=== PATIENT | female | born 1950 | race Caucasian/White ===

== ENCOUNTER → 2017-04-23 | Outpatient (CLI) | payer BC ==
[~2017-04-23] MED LIST: CALC600T37 PO; CYAN500T13 PO; LPT20 PO; MULT-506 PO; RALO60TA31 PO; RSTOPS OP; SERT-234 PO; SYN137 PO; vitamin d 3 PO
--- NOTE | 2017-04-23 09:54 | DIAGNOSTIC IMAGING REPORT ---
(CHEST) THORAX WITHOUT CT DOSE: 268.84 mGy.cm HISTORY: Follow-up pulmonary nodule. TECHNIQUE: Multiaxial CT images of the chest were performed without contrast. A dose lowering technique was utilized adhering to the principles of ALARA. COMPARISON: Chest CT 05/02/2015. Chest CT 01/30/2014. FINDINGS: The central airways are patent. No pleural effusions. No pneumothorax. Mild emphysema. There again noted a few tiny scattered subcentimeter nodules which measure between 2 and 3 mm in size. These remain unchanged. There is a single new 2 mm nodule within the periphery of the left upper lobe in image 71. Linear densities at the lingula favor subsegmental atelectasis or scarring. This remains unchanged. Mild elevation the left hemidiaphragm, unchanged. Small fat-containing right-sided Bochdalek hernia, unchanged. Punctate calcified granuloma seen within the liver. The spleen and adrenal glands are unremarkable. No mediastinal or hilar lymphadenopathy. The heart is normal in size. No suspicious lytic or blastic osseous lesions. IMPRESSION: 1. The majority of the scattered subcentimeter nodules are stable in size and are considered to be benign. There is a single new 2 mm nodule within the left upper lobe. Recommend one year chest CT follow-up to ensure stability. 2. Emphysema. Electronically signed by: Shaun Epperson M.D. 04/23/2017 9:53 AM Dictated Date/Time: 04/23/2017 9:41 AM
== END | disposition home or self-care (01) ==
LOC: C.CTS 09:30
PROVIDERS: ATTEND Physician Assistant
DX: R91.1 Solitary pulmonary nodule (principal); J43.9 Emphysema, unspecified

== ENCOUNTER 2019-09-14 14:09 | Inpatient (IN) ==
[2019-09-14] MEDS ORDERED: SODIUM CHLORIDE 0.9% 1000ML 1,000 ML IV ONE ×2 (14:30→16:22)
[2019-09-14] MEDS ORDERED: ONDANSETRON INJ 2 MG/ML 2 ML VIAL IV STA (14:30)
--- NOTE | 2019-09-14 14:41 | Emergency Department Note ---
Impression & Plan Pyelonephritis, Abdominal pain, Nausea & vomiting, Acute dehydration ED Provider Note NAME: ALEX URRUTIA AGE: 69 SEX: F : 1950 ARRIVES VIA: Walk-In INFORMANT: Patient, ED PROVIDER(S): Yann Wolfe DO CHIEF COMPLAINT: Abdominal pain HPI: The patient is a 69-year-old female who presented to the emergency department for an evaluation of abdominal pain. The patient states on Thursday she started having periumbilical abdominal pain. She states the pain is mostly in her lower quadrants. She does complain of nausea and vomiting which is severe at times. The nausea and vomiting began after the pain and is been w orsening over the last 24 hours. She notices no diarrhea. She does have a slight frontal headache. She does complain of some dizziness upon standing but also states that some of it is vertiginous in nature. She denies having any chest pain or shortness of breath. She denies having any lower extremity edema. She does complain of generalized weakness and states she has dizziness upon going from a seated to standing position. The patient states the pain has slowly been worsening and is worsened with any food as well as movement. She denies having any recent traveling. She has no exposures to COVID-19 that she knows of. She states that she did go with her on a picnic to a local park and states that when she ate the coleslaw that was delivered it did taste funny but no other sick contacts are noted and she states she did not eat very much of the coleslaw. The patient called her primary care physician and was advised to go for a COVID-19 test although she is unsure about this diagnosis. The patient states she has been taking Tylenol for fever. Her last dose was early this morning. She thinks approximately 3 AM. ROS: See above HPI for pertinent positives & negatives. A total of 10 systems reviewed and were otherwise negative. PAST MEDICAL HISTORY: See Below PAST SURGICAL HISTORY: See Below FAMILY HISTORY: See Below SOCIAL HISTORY: See Below HOME MEDICATIONS: See Below ALLERGIES: See Below VITALS: See Below PHYSICAL EXAMINATION: GENERAL: The patient is awake and alert. She is anxious appearing. EYES: The conjunctivae are clear. The pupils are round and reactive. EARS, NOSE, MOUTH AND THROAT: The nose is without any evidence of any deformity. Mucous membranes are dry. NECK: The neck is nontender and supple. RESPIRATORY: Normal respiratory effort is noted there is no evidence of wheezing rhonchi or rales CARDIOVASCULAR: Tachycardic rate with regular rhythm was noted. There is no definite murmur. GASTROINTESTINAL: The abdomen is mildly distended and soft. There is left lower quadrant tenderness with guarding. There is no right lower quadrant tenderness at this time. MUSCULOSKELETAL/EXTREMITIES: There is no evidence of gross deformity full range of motion is noted in the hips and shoulders. SKIN: There is no obvious evidence of any rash. Trace pedal edema was noted. NEUROLOGIC: Patient is awake alert and oriented x3 strength is symmetric patellar reflexes are 2+ bilaterally MEDICAL DECISION MAKING: The patient is a 69-year-old female who presented to the emergency department for an evaluation of nausea and vomiting. The patient has been experiencing u rinary symptoms as well as fever over the last few days. Her symptoms have been worsening. She is now experiencing worsening vomiting. She has been experiencing fever but took Tylenol early this morning. She did not have a fever on presentation in the emergency department. She was found to have an elevated white blood cell count as well as elevated inflammatory markers. Her urine appears to be consistent with infection. CT the abdomen and pelvis was also obtained and appear to be consistent with pyelonephritis. The patient was treated with IV fluids and IV antiemetics. The patient was also treated with IV antibiotics in the emergency department. She was reevaluated multiple times. Her blood pressure continued to be elevated. I am unsure if this is secondary to the involvement of the kidney with her infection. She was treated with 1 dose of Lopressor with improvement of her vital signs. I discussed the patient's laboratory and radiographic studies with her. I also discussed her case with the on-call [facility] hospitalist group. They have agreed to evaluate the patient in the emergency department for further management and disposition. Triage Nursing notes reviewed. Prior medical records reviewed Vital Signs: reviewed and remarkable for tachycardia and hypertension. Differential diagnosis: Etiologies such as appendicitis, diverticulitis, obstruction, inflammatory bowel disease, renal colic, PUD, biliary pathology, pancreatitis, mesenteric ischemia, aortic pathology, infections, genitourinary, UTI, perforated viscus, as well as others were entertained. ER treatment provided: See below Diagnostics interpreted by me: ECG: EKG was obtained in the emergency department. My interpretation is normal sinus rhythm at 92 bpm. There is no ectopy. There is no acute ST segment abnormalities noted. This was compared to a tracing from January 06, 2014. No significant changes were noted. Cardiac Monitoring: An order was placed for continuous cardiac monitoring. The monitor shows a rate of 98 with sinus rhythm. Laboratory studies: As stated above and show below. Imaging studies: See below Consultation(s): [id number]: Discussed this case with Olive with the [facility] hospitalist group. They have agreed to evaluate the patient in the emergency department for further management disposition. ED COURSE: Procedures: none Critical Care: None Past Med/Surg History Medical History (Updated 09/14/19 @ 18:20 by Anya Hung PA-C) Abnormal finding on lung imaging Alcoholism in remission Anxiety Chronic bronchitis CKD (chronic kidney disease), stage III Cough Dry eye syndrome Hepatitis C Treated and cured Hypothyroidism Lesion of vocal cord Medical marijuana use Osteopenia Pulmonary emphysema Solitary pulmonary nodule Wheezing Surgical History (Updated 09/14/19 @ 18:30 by Anya Hung PA-C) H/O colonoscopy H/O dilation and curettage Hx of tubal ligation S/P bronchoscopy Family History Family/Other Osteoporosis Hypertension Myocardial infarction Social History Preferred Language: Taiwanese Communication Ability: Effective Beliefs That Will Affect Care: None Current Living Situation: Spouse current occupational status: retired Other Information That Helps Us Care for You: No Feels Safe at Home: Yes Safety Concerns: Feels Safe At This Time Smoking Status: Former smoker Cigarettes Per Day: 40 ; Hx Alcohol Use: No (Recovering Alcoholic ) Seatbelt Use: always Allergies Allergies Allergy/AdvReac Type Severity Reaction Status Date / Time formoterol [From Dulera] Allergy Severe Unknown Unverified 09/14/19 16:04 mometasone furoate Allergy Severe Unknown Unverified 09/14/19 16:04 [From Dulera] Home Meds Home Medications Medication Instructions Recorded Confirmed atorvastatin 10 mg tablet 5 mg PO DAILY tab 11/02/18 09/14/19 acetaminophen [Tylenol Extra 500 mg PO Q6H PRN 09/14/19 09/14/19 Strength] hydrocortisone 1 applic TOPICAL TID PRN 09/14/19 09/14/19 levothyroxine 88 mcg PO DAILY 09/14/19 09/14/19 nystatin 1 applic TOPICAL BID 09/14/19 09/14/19 nystatin [Nystop] 1 applic TOPICAL TID 09/14/19 09/14/19 omeprazole 20 mg PO DAILY 09/14/19 09/14/19 raloxifene [Evista] 60 mg PO DAILY 09/14/19 09/14/19 venlafaxine [Effexor XR] 150 mg PO DAILY 09/14/19 09/14/19 Previous Rx's Medication Instructions Recorded albuterol sulfate 2.5 mg INH Q4H PRN #360 ml 06/14/19 albuterol sulfate 90 mcg/actuation 2 puffs INHALATION Q4H PRN #18 gm 06/14/19 aerosol inhaler Results & Data (ED) Vital Signs Vital Signs - 24 hr 09/14/19 14:18 09/14/19 15:30 09/14/19 15:33 Temperature 36.7 C Temperature Source Oral Pulse Rate 126 H 97 H Pulse Rate from SpO2 Sensor Respiratory Rate 16 14 Blood Pressure 166/91 H 191/101 H Blood Pressure Mean 116 120 Pulse Oximetry 96 96 96 Oxygen Delivery Method Room Air Room Air Sepsis Recent Fever Within 48 Hours No Sepsis New/Unexplained Change in Mental Status No Sepsis Action Taken by Nursing No Action Required 09/14/19 15:53 09/14/19 15:58 09/14/19 16:00 Temperature Temperature Source Pulse Rate 100 H 96 H 100 H Pulse Rate from SpO2 Sensor 100 H Respiratory Rate 20 24 19 Blood Pressure 202/110 H 200/106 H 181/97 H Blood Pressure Mean 151 126 127 Pulse Oximetry 95 97 97 Oxygen Delivery Method Sepsis Recent Fever Within 48 Hours Sepsis New/Unexplained Change in Mental Status Sepsis Action Taken by Nursing 09/14/19 16:04 09/14/19 16:30 09/14/19 18:22 Temperature Temperature Source Pulse Rate 112 H 93 H 88 Pulse Rate from SpO2 Sensor 94 H Respiratory Rate 22 18 Blood Pressure 181/97 H 164/91 H 180/92 H Blood Pressure Mean 120 Pulse Oximetry 94 100 Oxygen Delivery Method Room Air Sepsis Recent Fever Within 48 Hours Sepsis New/Unexplained Change in Mental Status Sepsis Action Taken by Half-Way Medications Current Medication List: was personally reviewed by me Laboratory Data Attestation: I reviewed the patient's lab results. Result diagrams: 09/14/19 14:50 09/14/19 14:50 Lab Results 09/14/19 09/14/19 09/14/19 Range/Units 14:50 14:50 14:50 WBC 13.14 H (4.8-10.8) K/uL RBC 4.84 (4.2-5.4) M/uL Hgb 13.8 (12.0-16.0) g/dL POC Hgb (12.0-16.0) g/dl Hct 41.0 (37-47) % POC Hct (37-47) % MCV 84.7 (80-100) fL MCH 28.5 (25-34) pg MCHC 33.7 (32-36) g/dL RDW Std Deviation 43.0 (36.4-46.3) fL RDW Coeff of Andreina 13.8 (11.5-14.5) % Plt Count 192 (130-400) K/uL MPV 11.1 H (7.4-10.4) fL Immature Gran % (Auto) 0.3 % Neut % (Auto) 84.8 % Lymph % (Auto) 4.9 % [place] % (Auto) 9.9 % Eos % (Auto) 0.0 % Baso % (Auto) 0.1 % Immature Gran # (Auto) 0.04 H (0.00-0.02) K/uL Neut # (Auto) 11.15 H (1.4-6.5) K/uL Lymph # (Auto) 0.64 L (1.2-3.4) K/uL [place] # (Auto) 1.30 H (0.11-0.59) K/uL Eos # (Auto) 0.00 (0-0.5) K/uL Baso # (Auto) 0.01 (0-0.2) K/uL ESR (0-21) mm/hr POC Sodium (135-144) mmol/L Sodium 136 (136-145) mmol/L POC Potassium (3.3-5.0) mmol/L Potassium 3.2 L (3.5-5.1) mmol/L POC Chloride (101-112) mmol/L Chloride 103 (98-107) mmol/L Carbon Dioxide 20 L (21-32) mmol/L POC Total CO2 (24-31) mmol/L Anion Gap 13.0 H (3-11) POC Anion Gap (16-25) mmol/L POC BUN (7-18) mg/dl BUN 11 (7-18) mg/dl Creatinine 1.12 (0.6-1.2) mg/dl POC Creatinine (0.6-1.3) mg/dl Est Cr Clr Drug Dosing 50.0 ml/min Est GFR ( Amer) 57.6 Est GFR (Non-Af Amer) 49.7 BUN/Creatinine Ratio 9.8 L (10-20) Glucose 96 (70-99) mg/dl POC Glucose (other) (70-99) mg/dl Lactate 1.5 (0.4-2.0) mmol/L Calcium 8.5 (8.5-10.1) mg/dl POC Ioniz Calcium Sidney (1.12-1.32) mmol/l Total Bilirubin 0.7 (0.2-1) mg/dl AST 14 L (15-37) U/L ALT 14 (12-78) U/L Alkaline Phosphatase 73 (45-117) U/L Troponin I < 0.015 (0-0.045) ng/ml C-Reactive Protein 8.87 H (0-0.29) mg/dl Total Protein 7.2 (6.4-8.2) gm/dl Albumin 3.2 L (3.4-5.0) gm/dl Globulin 4.0 (2.5-4.0) gm/dl Albumin/Globulin Ratio 0.8 L (0.9-2) Lipase 92 (73-393) U/L Urine Color Urine Appearance (Clear) Urine pH (4.5-7.5) Ur Specific [place] (1.000-1.030) Urine Protein (Negative) Urine Glucose (UA) (Negative) Urine Ketones (Negative) Urine Blood (Negative) Urine Nitrite (Negative) Urine Bilirubin (Negative) Urine Urobilinogen (Negative) Ur Leukocyte Esterase (Negative) Urine WBC (Auto) (0-5) /hpf Urine RBC (Auto) (0-4) /hpf U Hyaline Cast (Auto) (0-5) /lpf U Epithel Cells (Auto) (0-5) /lpf Urine Bacteria (Auto) (Negative) 09/14/19 09/14/19 09/14/19 Range/Units 14:50 14:58 15:48 WBC (4.8-10.8) K/uL RBC (4.2-5.4) M/uL Hgb (12.0-16.0) g/dL POC Hgb 14.6 (12.0-16.0) g/dl Hct (37-47) % POC Hct 43 (37-47) % MCV (80-100) fL MCH (25-34) pg MCHC (32-36) g/dL RDW Std Deviation (36.4-46.3) fL RDW Coeff of Andreina (11.5-14.5) % Plt Count (130-400) K/uL MPV (7.4-10.4) fL Immature Gran % (Auto) % Neut % (Auto) % Lymph % (Auto) % [place] % (Auto) % Eos % (Auto) % Baso % (Auto) % Immature Gran # (Auto) (0.00-0.02) K/uL Neut # (Auto) (1.4-6.5) K/uL Lymph # (Auto) (1.2-3.4) K/uL [place] # (Auto) (0.11-0.59) K/uL Eos # (Auto) (0-0.5) K/uL Baso # (Auto) (0-0.2) K/uL ESR 42 H (0-21) mm/hr POC Sodium 134 L (135-144) mmol/L Sodium (136-145) mmol/L POC Potassium 3.2 L (3.3-5.0) mmol/L Potassium (3.5-5.1) mmol/L POC Chloride 100 L (101-112) mmol/L Chloride (98-107) mmol/L Carbon Dioxide (21-32) mmol/L POC Total CO2 19 L (24-31) mmol/L Anion Gap (3-11) POC Anion Gap 19.0 (16-25) mmol/L POC BUN 12 (7-18) mg/dl BUN (7-18) mg/dl Creatinine (0.6-1.2) mg/dl POC Creatinine 1.0 (0.6-1.3) mg/dl Est Cr Clr Drug Dosing ml/min Est GFR ( Amer) Est GFR (Non-Af Amer) BUN/Creatinine Ratio (10-20) Glucose (70-99) mg/dl POC Glucose (other) 104 H (70-99) mg/dl Lactate (0.4-2.0) mmol/L Calcium (8.5-10.1) mg/dl POC Ioniz Calcium Sidney 1.09 L (1.12-1.32) mmol/l Total Bilirubin (0.2-1) mg/dl AST (15-37) U/L ALT (12-78) U/L Alkaline Phosphatase (45-117) U/L Troponin I (0-0.045) ng/ml C-Reactive Protein (0-0.29) mg/dl Total Protein (6.4-8.2) gm/dl Albumin (3.4-5.0) gm/dl Globulin (2.5-4.0) gm/dl Albumin/Globulin Ratio (0.9-2) Lipase (73-393) U/L Urine Color Yellow Urine Appearance Clear (Clear) Urine pH 5.0 (4.5-7.5) Ur Specific [place] 1.027 (1.000-1.030) Urine Protein Negative (Negative) Urine Glucose (UA) Negative (Negative) Urine Ketones 3+ H (Negative) Urine Blood Trace H (Negative) Urine Nitrite Negative (Negative) Urine Bilirubin Negative (Negative) Urine Urobilinogen Negative (Negative) Ur Leukocyte Esterase 1+ H (Negative) Urine WBC (Auto) 10-30 H (0-5) /hpf Urine RBC (Auto) 0-4 (0-4) /hpf U Hyaline Cast (Auto) 1-5 (0-5) /lpf U Epithel Cells (Auto) 5-10 H (0-5) /lpf Urine Bacteria (Auto) Negative (Negative) Administered Medications Ioversol (Optiray 320 100ml) 94 ml IV ONCE PRN PRN Reason: Interaction Checking Stop: 09/18/19 15:20 Last Admin: 09/14/19 15:21 Dose: 94 ml Documented by: [id number] Miscellaneous Information (Consult) 1 ea N/A UD PRN PRN Reason: Consult Stop: 10/14/19 15:57 Last Admin: 09/14/19 16:10 Dose: 1 ea Documented by: [id number] Discontinued Medications Sodium Chloride (Nss 1000ml) 1,000 mls @ 999 mls/hr IV .Q1H1M ONE Stop: 09/14/19 15:30 Last Infusion: 09/14/19 16:01 Dose: 0 mls/hr Documented by: [id number] Admin: 09/14/19 15:00 Dose: 999 mls/hr Documented by: [id number] Piperacillin Sod/Tazobactam Sod (Zosyn) 4.5 gm in 120 mls @ 240 mls/hr IV NOW ONE Stop: 09/14/19 16:27 Last Infusion: 09/14/19 16:38 Dose: 0 mls/hr Documented by: [id number] Admin: 09/14/19 16:04 Dose: 240 mls/hr Documented by: [id number] Sodium Chloride (Nss 1000ml) 1,000 mls @ 999 mls/hr IV .Q1H1M ONE Stop: 09/14/19 17:22 Last Admin: 09/14/19 16:36 Dose: 999 mls/hr Documented by: [id number] Metoprolol Tartrate (Lopressor) 5 mg IV NOW STA Stop: 09/14/19 16:00 Last Admin: 09/14/19 16:04 Dose: 5 mg Documented by: [id number] Ondansetron HCl (Zofran) 4 mg IV NOW STA Stop: 09/14/19 14:31 Last Admin: 09/14/19 15:16 Dose: 4 mg Documented by: [id number] Imaging Data Radiologist's Impression: SINGLE VIEW CHEST CLINICAL HISTORY: Fever. FINDINGS: An AP, portable, upright chest radiograph is correlated with chest CT dated 06/10/2019. The examination is degraded by portable technique and patient rotation. The cardiomediastinal silhouette is unremarkable noting atherosclerotic calcification of the thoracic aorta. Emphysema and chronic interstitial thickening are similar to previous. No airspace consolidation or large pleural effusion is identified. There is minimal bibasilar atelectasis. No pneumothorax is seen. The skeletal structures are osteopenic. There are healed left-sided rib fractures. IMPRESSION: Emphysematous change with no acute cardiopulmonary abnormality. ACT 112: Negative or not required by law. Electronically signed by: Robert Dodd M.D. 09/14/2019 2:59 PM Dictated: 09/14/19 1457 Transcribed: 09/14/[address] OF THE ABDOMEN AND PELVIS WITH CONTRAST CLINICAL HISTORY: Fever. Abdominal pain. COMPARISON STUDY: None. TECHNIQUE: Following IV administration of 94 mL of Optiray-320, axial images of the abdomen and pelvis were obtained from the lung bases to the proximal femurs. Images were reviewed in the axial, sagittal, and coronal planes. IV contrast was administered without complication. Automated exposure control was utilized for the study. A dose lowering technique was utilized adhering to the principles of ALARA. CT DOSE: 578.75 mGy.cm FINDINGS: Lung bases are unremarkable. No pneumatosis, free air or portal venous gas is present. The liver, spleen, adrenal glands, right kidney and pancreas are unremarkable. A subcentimeter hypodense lesion within the lower pole the right kidney likely contains fat. 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 There are multiple hypoenhancing foci within the left kidney with perinephric infiltration. There is asymmetric enhancement of the left ureteral wall. Mild bladder wall thickening with adjacent infiltration is noted. There are no urinary calculi. There is no renal abscess. No hydronephrosis is present. Colonic diverticulosis is noted without evidence for acute diverticulitis. No lymphadenopathy is present. There is no evidence for a bowel obstruction. The appendix is normal. No suspicious osseous lesions are present. IMPRESSION: Findings consistent with left sided pyelonephritis and pyelitis. Probable cystitis. No renal abscess. No hydronephrosis. ACT 112: Negative or not required by law. Electronically signed by: Thor Sandhu M.D. 09/14/2019 3:54 PM Dictated: 09/14/19 1528 Transcribed: 09/14/19 1528 Blood Pressure Blood Pressure Findings: Elevated blood pressure Blood Pressure Disposition: further management by hospitalist Discharge Plan Visit Data Chief Complaint: Fever Stated Complaint: STOMACH PAIN,FEVER ED Provider: Yann Wolfe Discharge Problem: Pyelonephritis, Abdominal pain, Nausea & vomiting, Acute dehydration Patient Disposition: Being Evaluated by Hospitalist Condition: Good Discharge Instructions Interventions: ED Discharge Assessment Last Done: 09/14/19 18:22 Forms Stand Alone Forms: [facility] [employer] Prescriptions Prescriptions: No Action albuterol sulfate 90 mcg/actuation HFA aerosol inhaler 2 puffs inhalation Q4H PRN (Reason: shortness of breath or wheezing) Qty: 18 RF: 5 albuterol sulfate 2.5 mg /3 mL (0.083 %) solution for nebulization 2.5 mg INH Q4H PRN (Reason: shortness of breath or wheezing) Qty: 360 RF: 5 atorvastatin 10 mg tablet 5 mg PO DAILY RF: 0 Trelegy Ellipta 100-62.5-25 mcg blister with device 1 inh inhalation DAILY RF: 0 venlafaxine [Effexor XR] 150 mg capsule,extended release 24hr 150 mg PO DAILY RF: 0 levothyroxine 88 mcg tablet 88 mcg PO DAILY RF: 0 nystatin 100,000 unit/gram cream 1 applic TOPICAL BID RF: 0 omeprazole 20 mg capsule,delayed release(DR/EC) 20 mg PO DAILY RF: 0 raloxifene [Evista] 60 mg tablet 60 mg PO DAILY RF: 0 hydrocortisone 2.5 % Cream 1 applic TOPICAL TID PRN (Reason: AFFECTED AREA) RF: 0 nystatin [Nystop] 100,000 unit/gram powder 1 applic TOPICAL TID RF: 0 acetaminophen [Tylenol Extra Strength] 500 mg Tablet 500 mg PO Q6H PRN (Reason: Pain) RF: 0 Referrals Referrals: Mallika Jauregui DO [Primary Care Provider] - Discharge Problem: Abdominal pain Qualifiers: Abdominal location: left upper quadrant Qualified Code(s): R10.12 - Left upper quadrant pain Nausea & vomiting Qualifiers: Vomiting type: unspecified Vomiting Intractability: non-intractable Qualified Code(s): R11.2 - Nausea with vomiting, unspecified
--- NOTE | 2019-09-14 15:00 | XRay Report ---
SINGLE VIEW CHEST CLINICAL HISTORY: Fever. FINDINGS: An AP, portable, upright chest radiograph is correlated with chest CT dated 06/10/2019. The examination is degraded by portable technique and patient rotation. The cardiomediastinal silhouette is unremarkable noting atherosclerotic calcification of the thoracic aorta. Emphysema and chronic int erstitial thickening are similar to previous. No airspace consolidation or large pleural effusion is identified. There is minimal bibasilar atelectasis. No pneumothorax is seen. The skeletal structures are osteopenic. There are healed left-sided rib fractures. IMPRESSION: Emphysematous change with no acute cardiopulmonary abnormality. ACT 112: Negative or not required by law. Electronically signed by: Robert Dodd M.D. 09/14/2019 2:59 PM
[2019-09-14 15:03] LABS: Basophils # (auto) 0.01 K/uL (0-0.2); Basophils % (auto) 0.1 %; Hemoglobin 13.8 g/dL (12.0-16.0); Immature Granulocytes # (auto) 0.04 K/uL (0.00-0.02); Immature Granulocytes % (auto) 0.3 %; Lymphocytes # (auto) 0.64 K/uL (1.2-3.4); Lymphocytes % (auto) 4.9 %; Mean Corpuscular Hemoglobin 28.5 pg (25-34); Mean Corpuscular Hgb Conc 33.7 g/dL (32-36); Mean Corpuscular Volume 84.7 fL (80-100); Mean Platelet Volume 11.1 fL (7.4-10.4); Monocytes % (auto) 9.9 %; Neutrophils # (auto) 11.15 K/uL (1.4-6.5); Neutrophils % (auto) 84.8 %; Platelet Count 192 K/uL (130-400); RDW Coefficient of Variation 13.8 % (11.5-14.5); Red Blood Count 4.84 M/uL (4.2-5.4); White Blood Count 13.14 K/uL (4.8-10.8)
[2019-09-14 15:11] LABS: iSTAT Hemoglobin 14.6 g/dl (12.0-16.0); iSTAT Ionized Calcium 1.09 mmol/l (1.12-1.32); iSTAT Potassium 3.2 mmol/L (3.3-5.0)
[2019-09-14] MEDS ORDERED: IOVERSOL 100ml IV PRN (15:21)
[2019-09-14 15:29] LABS: Alanine Aminotransferase 14 U/L (12-78); Albumin Level 3.2 gm/dl (3.4-5.0); Aspartate Aminotransferase 14 U/L (15-37); BUN Creatinine Ratio 9.8 (10-20); Blood Urea Nitrogen 11 mg/dl (7-18); Calcium 8.5 mg/dl (8.5-10.1); Carbon Dioxide 20 mmol/L (21-32); Chloride 103 mmol/L (98-107); Est GFR (African American) 57.6; Est GFR (Non-African American) 49.7; Glucose 96 mg/dl (70-99); Lipase 92 U/L (73-393); Potassium 3.2 mmol/L (3.5-5.1); Sodium 136 mmol/L (136-145)
[2019-09-14 15:34] LABS: Albumin Globulin Ratio 0.8 (0.9-2); Alkaline Phosphatase 73 U/L (45-117); Bilirubin,Total 0.7 mg/dl (0.2-1); C Reactive Protein 8.87 mg/dl (0-0.29); Total Protein 7.2 gm/dl (6.4-8.2); Troponin I < 0.015 ng/ml (0-0.045)
--- NOTE | 2019-09-14 15:55 | CT Scan Report ---
CT OF THE ABDOMEN AND PELVIS WITH CONTRAST CLINICAL HISTORY: Fever. Abdominal pain. COMPARISON STUDY: None. TECHNIQUE: Following IV administration of 94 mL of Optiray-320, axial images of the abdomen and pelvi s were obtained from the lung bases to the proximal femurs. Images were reviewed in the axial, sagitt al, and coronal planes. IV contrast was administered without complication. Automated exposure contro l was utilized for the study. A dose lowering technique was utilized adhering to the principles of A ROGER. CT DOSE: 578.75 mGy.cm FINDINGS: Lung bases are unremarkable. No pneumatosis, free air or portal venous gas is present. The liver, spleen, adrenal glands, right kidney and pancreas are unremarkable. A subcentimeter hypodense lesion within the lower pole the right kidney likely contains fat. This is likely benign and favors a n angiomyolipoma. There are multiple hypoenhancing foci within the left kidney with perinephric infil tration. There is asymmetric enhancement of the left ureteral wall. Mild bladder wall thickening with adjacent infiltration is noted. There are no urinary calculi. There is no renal abscess. No hydronep hrosis is present. Colonic diverticulosis is noted without evidence for acute diverticulitis. No lymp hadenopathy is present. There is no evidence for a bowel obstruction. The appendix is normal. No susp icious osseous lesions are present. IMPRESSION: Findings consistent with left sided pyelonephritis and pyelitis. Probable cystitis. No r enal abscess. No hydronephrosis. ACT 112: Negative or not required by law. Electronically signed by: Thor Sandhu M.D. 09/14/2019 3:54 PM
[2019-09-14] MEDS ORDERED: PIPERACILL/TAZOBAC CONSULT ACTIVE PRN ×2 (15:58→19:20)
[2019-09-14] MEDS ORDERED: PIPERACILLIN/TAZOBACTAM 4.5 GM/120 ML BAG IV ONE (15:58)
[2019-09-14] MEDS ORDERED: METOPROLOL TARTRATE 1 MG/ML VIAL IV STA (15:59)
[2019-09-14 16:17] LABS: Appearance Urine Clear (Clear); Bacteria Urine Automated Negative (Negative); Bilirubin Urine Negative (Negative); Blood Urine Trace (Negative); Color Urine Yellow; Glucose Urine UA Negative (Negative); Ketones Urine 3+ (Negative); Leukocyte Esterase Urine 1+ (Negative); Nitrite Urine Negative (Negative); Protein Urine Negative (Negative); RBC Urine Automated 0-4 /hpf (0-4); Specific Gravity Urine 1.027 (1.000-1.030); Urobilinogen Urine Negative (Negative)
--- NOTE | 2019-09-14 17:59 | History & Physical Report ---
Date of Service September 14, 2019 Assessment & Plan (1) Sepsis secondary to UTI: (2) Pyelonephritis: (3) Abdominal pain: (4) Nausea & vomiting: Patient with abdominal pain, N/V, fever, and upon presentation, what appears to be acute pyelonephritis. Meets sepsis criteria. Will admit to PCU for close monitoring. Urine culture pending. Blood cultures ordered. Zosyn started in the ED- will continue pending cultures results. Hopefully can deescalate tomorrow. Continue Zofran PRN Nausea. Continue Tylenol PRN pain/fever. Full liquid diet. Advance as tolerated. (5) Acute dehydration: (6) Hypokalemia: (7) CKD (chronic kidney disease), stage III: (8) Elevated BP without diagnosis of hypertension: BP elevated likely secondary to dehydration and infection. Metoprolol given in the ED. BP slightly better now. Patient with no history of HTN. Will give IV Hydralazine 5 mg TID PRN BP >180 systolic or >100 diastolic. Continue to monitor closely. Continue IV hydration. Give K-Jesus x 2. Continue 20 mEq K+ in NSS x 2 bags. Recheck CBC and BMP in AM. (9) Hypothyroidism: Restart Levothyroxine in AM (10) DVT prophylaxis: Lovenox History of Present Illness Chief Complaint: Abdominal pain, fever Primary Care Provider: Mallika Jauregui DO Patient is a 69 yo female with PMHx including CKD III, hypothyroidism, & COPD who presented to the ED with concern of abdominal pain, N/V, and fever at home. She started to have symptoms Thursday evening at which time she ate some potato salad and heather slaw that she thought might be out of date. She felt that it was bad, and soon after she started to feel poorly. By Thursday morning, she noted N/V, increased urination with urgency, fever up to 103 F, frontal headache, and vague generalized abdominal pain. She has continued to have these symptoms worsening over the past few days. She hasn't taken any of her home meds since Thursday night due to N/V. She had a kidney infection when she was young, but otherwise no recent UTIs. No chest pain, dysphagia, or peripheral edema. Upon presentation, patient was noted to have severely elevated BP up to 202/110 without a formal diagnosis of HTN as an outpatient. She had hyponatremia and hypokalemia. Hyponatremia has improved but continued hypokalemia. No further vomiting. She has shaking chills on and off. No fever currently. Last antipyretic taken last night at 3AM. Abdominal/pelvic CT showed left sided pyelonephritis and pyelitis with probable cystitis. CXR showed signs of emphysema but no acute changes. Urine culture pending. Zosyn given in the ED. Lopressor also given. WBC count 13 with bandemia. ESR 42. CRP 8.8. Creatinine 1.12. Allergies Allergy/AdvReac Type Severity Reaction Status Date / Time formoterol [From Dulera] Allergy Severe Unknown Unverified 09/14/19 16:04 mometasone furoate Allergy Severe Unknown Unverified 09/14/19 16:04 [From Dulera] Home Medications Home Medications Medication Instructions Recorded Confirmed Type atorvastatin 10 mg tablet 5 mg PO DAILY tab 11/02/18 09/14/19 History albuterol sulfate 2.5 mg INH Q4H PRN #360 ml 06/14/19 09/14/19 Rx albuterol sulfate 90 mcg/actuation 2 puffs INHALATION Q4H PRN #18 gm 06/14/19 09/14/19 Rx aerosol inhaler acetaminophen [Tylenol Extra 500 mg PO Q6H PRN 09/14/19 09/14/19 History Strength] hydrocortisone 1 applic TOPICAL TID PRN 09/14/19 09/14/19 History levothyroxine 88 mcg PO DAILY 09/14/19 09/14/19 History nystatin 1 applic TOPICAL BID 09/14/19 09/14/19 History nystatin [Nystop] 1 applic TOPICAL TID 09/14/19 09/14/19 History omeprazole 20 mg PO DAILY 09/14/19 09/14/19 History raloxifene [Evista] 60 mg PO DAILY 09/14/19 09/14/19 History venlafaxine [Effexor XR] 150 mg PO DAILY 09/14/19 09/14/19 History Past Med/Surg History Medical History (Updated 09/14/19 @ 18:20 by Anya Hung PA-C) Abnormal finding on lung imaging Alcoholism in remission Anxiety Chronic bronchitis CKD (chronic kidney disease), stage III Cough Dry eye syndrome Hepatitis C Treated and cured Hypothyroidism Lesion of vocal cord Medical marijuana use Osteopenia Pulmonary emphysema Solitary pulmonary nodule Wheezing Surgical History (Updated 09/14/19 @ 18:30 by Anya Hung PA-C) H/O colonoscopy H/O dilation and curettage Hx of tubal ligation S/P bronchoscopy Family History Family/Other Osteoporosis Hypertension Myocardial infarction Social History Preferred Language: Korean Communication Ability: Effective Beliefs That Will Affect Care: None Current Living Situation: Spouse current occupational status: retired Other Information That Helps Us Care for You: No Feels Safe at Home: Yes Safety Concerns: Feels Safe At This Time Smoking Status: Former smoker Cigarettes Per Day: 40 ; Hx Alcohol Use: No (Recovering Alcoholic ) Seatbelt Use: always Review of Systems Review of Systems: All systems reviewed & are unremarkable except as noted in HPI & below Physical Exam Constitutional: WD/WN, vitals as above Eyes: PERRL, conjunctivae normal, anicteric sclerae ENMT: external ear and nose normal, oropharynx normal Neck: trachea midline, no thyromegaly Respiratory: normal respiratory effort; no respiratory distress and no labored breathing Cardiovascular: RRR, no murmur, no edema Gastrointestinal (Abdomen): normal bowel sounds, soft, nontender, no hepatosplenomegaly Musculoskeletal: Head/Neck/Chest: + head abnormal to inspection, normocephalic and head atraumatic Extremities: extremities normal to inspection Skin: no rashes, warm and dry Psychiatric: A+Ox3, euthymic affect Results & Data Results & Data ([facility]) Vital Signs (Past 12 Hours) Vital Signs Temp Pulse Resp BP Pulse Ox 09/14/19 16:30 93 H 22 164/91 H 94 09/14/19 16:04 112 H 181/97 H 09/14/19 16:00 100 H 19 181/97 H 97 09/14/19 15:58 96 H 24 200/106 H 97 09/14/19 15:53 100 H 20 202/110 H 95 09/14/19 15:33 96 09/14/19 15:30 97 H 14 191/101 H 96 09/14/19 14:18 36.7 C 126 H 16 166/91 H 96 Laboratory Results Laboratory Results - last 24 hr 09/14/19 09/14/19 09/14/19 14:50 14:50 14:50 WBC 13.14 H RBC 4.84 Hgb 13.8 POC Hgb Hct 41.0 POC Hct MCV 84.7 MCH 28.5 MCHC 33.7 RDW Std Deviation 43.0 RDW Coeff of Andreina 13.8 Plt Count 192 MPV 11.1 H Immature Gran % (Auto) 0.3 Neut % (Auto) 84.8 Lymph % (Auto) 4.9 [place] % (Auto) 9.9 Eos % (Auto) 0.0 Baso % (Auto) 0.1 Immature Gran # (Auto) 0.04 H Neut # (Auto) 11.15 H Lymph # (Auto) 0.64 L [place] # (Auto) 1.30 H Eos # (Auto) 0.00 Baso # (Auto) 0.01 ESR POC Sodium Sodium 136 POC Potassium Potassium 3.2 L POC Chloride Chloride 103 Carbon Dioxide 20 L POC Total CO2 Anion Gap 13.0 H POC Anion Gap POC BUN BUN 11 Creatinine 1.12 POC Creatinine Est Cr Clr Drug Dosing 50.0 Est GFR ( Amer) 57.6 Est GFR (Non-Af Amer) 49.7 BUN/Creatinine Ratio 9.8 L Glucose 96 POC Glucose (other) Lactate 1.5 Calcium 8.5 POC Ioniz Calcium Sidney Total Bilirubin 0.7 AST 14 L ALT 14 Alkaline Phosphatase 73 Troponin I < 0.015 C-Reactive Protein 8.87 H Total Protein 7.2 Albumin 3.2 L Globulin 4.0 Albumin/Globulin Ratio 0.8 L Lipase 92 Urine Color Urine Appearance Urine pH Ur Specific [place] Urine Protein Urine Glucose (UA) Urine Ketones Urine Blood Urine Nitrite Urine Bilirubin Urine Urobilinogen Ur Leukocyte Esterase Urine WBC (Auto) Urine RBC (Auto) U Hyaline Cast (Auto) U Epithel Cells (Auto) Urine Bacteria (Auto) 09/14/19 09/14/19 09/14/19 14:50 14:58 15:48 WBC RBC Hgb POC Hgb 14.6 Hct POC Hct 43 MCV MCH MCHC RDW Std Deviation RDW Coeff of Andreina Plt Count MPV Immature Gran % (Auto) Neut % (Auto) Lymph % (Auto) [place] % (Auto) Eos % (Auto) Baso % (Auto) Immature Gran # (Auto) Neut # (Auto) Lymph # (Auto) [place] # (Auto) Eos # (Auto) Baso # (Auto) ESR 42 H POC Sodium 134 L Sodium POC Potassium 3.2 L Potassium POC Chloride 100 L Chloride Carbon Dioxide POC Total CO2 19 L Anion Gap POC Anion Gap 19.0 POC BUN 12 BUN Creatinine POC Creatinine 1.0 Est Cr Clr Drug Dosing Est GFR ( Amer) Est GFR (Non-Af Amer) BUN/Creatinine Ratio Glucose POC Glucose (other) 104 H Lactate Calcium POC Ioniz Calcium Sidney 1.09 L Total Bilirubin AST ALT Alkaline Phosphatase Troponin I C-Reactive Protein Total Protein Albumin Globulin Albumin/Globulin Ratio Lipase Urine Color Yellow Urine Appearance Clear Urine pH 5.0 Ur Specific [place] 1.027 Urine Protein Negative Urine Glucose (UA) Negative Urine Ketones 3+ H Urine Blood Trace H Urine Nitrite Negative Urine Bilirubin Negative Urine Urobilinogen Negative Ur Leukocyte Esterase 1+ H Urine WBC (Auto) 10-30 H Urine RBC (Auto) 0-4 U Hyaline Cast (Auto) 1-5 U Epithel Cells (Auto) 5-10 H Urine Bacteria (Auto) Negative Diagnostic Findings CT Abd/Pelvis: IMPRESSION: Findings consistent with left sided pyelonephritis and pyelitis. Probable cystitis. No renal abscess. No hydronephrosis. CXR: IMPRESSION: Emphysematous change with no acute cardiopulmonary abnormality. Code Status & VTE Plan VTE Prophylaxis Plan VTE Prophylaxis will be ordered: Yes Supervising Physician Co-Signing Physician Notes Patient is a 69-year-old female with history of CKD, hypothyroidism, COPD and other medical problems presents with history of nausea, vomiting, abdominal pain associated with fever and increased urinary frequency. Please review HPI for complete details of presentation. CT abdomen suggestive of left-sided pyeloneph ritis and pyelitis, cystitis. No abscess or hydronephrosis noted. Patient meets sirs criteria. On exam patient is moderately built and nourished, normocephalic atraumatic, lungs are clear to auscultation, S1-S2, no murmur, abdomen soft nontender, no CVA tenderness, no pedal edema. Patient is admitted for management of sepsis secondary to acute pyelonephritis. Will start on IV Zosyn, IV fluids. Will obtain cultures. Also noted hypokalemia, mild metabolic acidosis. Normal lactate levels. Hypokalemia likely due to GI losses. Will replete electrolytes as needed. COPD--no signs of exacerbation. On chronic medical marijuana use. Continue levothyroxine for hypothyroidism. Blood pressure is elevated while in ED. Likely situational. Continue home medications. Hydralazine IV PRN. Will start on full liquid diet. Advance diet as tolerated. I personally reviewed the record. Patient is interviewed and examined at bedside. Patient's care is coordinated with Anya Hung PA-C. Please refer to the documentation above for details of patient's presentation and for discussion of other issues. (1) Nausea & vomiting Vomiting Intractability: non-intractable Vomiting type: unspecified Qualified Code(s): R11.2 - Nausea with vomiting, unspecified (2) Abdominal pain Abdominal location: left upper quadrant Qualified Code(s): R10.12 - Left upper quadrant pain
[2019-09-14] MEDS ORDERED: HydrALAZINE HCL 20 MG/ML VIAL IV PRN (18:48)
[2019-09-14] MEDS ORDERED: ONDANSETRON INJ 2 MG/ML 2 ML VIAL ONE (19:13)
[2019-09-14] MEDS: ONDANSETRON INJ 2 MG/ML 2 ML VIAL IV PRN (19:18)
[2019-09-14] MEDS: NSS + 20MEQ KCL 20 MEQ/1,000 ML BAG IV SCH (19:56)
[2019-09-14] MEDS: POTASSIUM CHLORIDE / WTR 10 MEQ/100 ML PLCT IV SCH ×2 (19:56→21:33)
[2019-09-14] MEDS: PIPERACILLIN/TAZOBACTAM 3.375 GM in DEXTROSE 5% 100 ML IV SCH (21:34)
[2019-09-14] MEDS: ENOXAPARIN INJ 40 MG/0.4 ML SYR SQ SCH (21:34)
[2019-09-15] MEDS: ONDANSETRON INJ 2 MG/ML 2 ML VIAL IV PRN ×2 (05:08→12:27)
[2019-09-15] MEDS: PIPERACILLIN/TAZOBACTAM 3.375 GM in DEXTROSE 5% 100 ML IV SCH ×3 (05:08→20:45)
[2019-09-15] MEDS: ACETAMINOPHEN 325 MG TAB PO PRN ×4 (05:09→19:52)
[2019-09-15] MEDS: LEVOTHYROXINE SODIUM 88 MCG TABLET PO SCH (05:09)
[2019-09-15 06:37] LABS: Hematocrit (blood only) 36.9 % (37-47); Hemoglobin 12.2 g/dL (12.0-16.0); Mean Corpuscular Hemoglobin 28.2 pg (25-34); Mean Corpuscular Hgb Conc 33.1 g/dL (32-36); Mean Corpuscular Volume 85.4 fL (80-100); Mean Platelet Volume 11.6 fL (7.4-10.4); Platelet Count 177 K/uL (130-400); RDW Coefficient of Variation 14.1 % (11.5-14.5); RDW Standard Deviation 44.6 fL (36.4-46.3); Red Blood Count 4.32 M/uL (4.2-5.4); White Blood Count 9.78 K/uL (4.8-10.8)
[2019-09-15 07:07] LABS: BUN Creatinine Ratio 9.8 (10-20); Calcium 8.2 mg/dl (8.5-10.1); Creatinine Clr Calc Pharmacy 52.3 ml/min; Est GFR (African American) 60.2; Potassium 3.6 mmol/L (3.5-5.1)
[2019-09-15] MEDS: NSS + 20MEQ KCL 20 MEQ/1,000 ML BAG IV SCH (07:55)
[2019-09-15] MEDS: VENLAFAXINE HCL XR 150 MG CAPXR PO SCH (07:56)
[2019-09-15] MEDS: RALOXIFENE HCL 60 MG TAB PO SCH (07:57)
[2019-09-15] MEDS: ATORVASTATIN 10 MG TAB PO SCH (07:57)
[2019-09-15] MEDS: PANTOprazole 40 MG TAB PO SCH (07:57)
[2019-09-15] MEDS: FLUTICASONE FUROATE 100MCG 14 PUFFS/INHALER INH SCH (07:58)
[2019-09-15] MEDS: UMECLIDINIUM/VILANTEROL 62.5/25MCG 7 PUFFS/INHALER INH SCH (07:58)
[2019-09-15] MEDS ORDERED: NON-FORMULARY MEDICATION (Fluticasone-Umeclidin-Vilanter [Trelegy Ellipta] 1 PUFFS) inhalation SCH (09:00)
--- NOTE | 2019-09-15 12:20 | CT Scan Report ---
CT head/brain wo con CLINICAL HISTORY: 69 years-old Female with headache, r/o bleed. Acute headache. TECHNIQUE: Multiple axial CT images of the head were obtained without contrast. A dose lowering tech nique was utilized adhering to the principles of ALARA. CT DOSE: 614.27 mGy.cm COMPARISON: None. FINDINGS: No acute intracranial hemorrhage, midline shift, intracranial mass, hydrocephalus, territorial ischem ia or abnormal extra-axial collection. Mild age-related involutional changes. Mild patchy white matte r hypodensities suggest chronic microvascular ischemic disease. The calvarium is intact. Trace right mastoid effusion. The left mastoid air cells are clear. The par anasal sinuses are generally clear. Hypoplastic frontal sinuses. Prior bilateral lens replacement. So ft tissues are unremarkable. IMPRESSION: No acute intracranial abnormality. ACT 112: Negative or not required by law. The above report was generated using voice recognition software. It may contain grammatical, syntax o r spelling errors. Electronically signed by: aYng Franklin M.D. 09/15/2019 12:18 PM
--- NOTE | 2019-09-15 16:58 | Electrocardiogram Report ---
Test Reason : Blood Pressure : / mmHG Vent. Rate : 092 BPM Atrial Rate : 092 BPM P-R Int : 154 ms QRS Dur : 078 ms QT Int : 370 ms P-R-T Axes : 030 031 063 degrees QTc Int : 457 ms Poor data quality, interpretation may be adversely affected Normal sinus rhythm Normal ECG When compared with ECG of 06-JAN-2014 15:38, No significant change was found Confirmed by Jesus Arteaga ([id number]) on 09/15/2019 4:58:22 PM Referred By: REFERRED SELF Confirmed By:Olman Arteaga
--- NOTE | 2019-09-15 18:26 | Hospitalist Progress Note ---
Date of Service September 15, 2019 Assessment & Plan (1) Sepsis secondary to UTI: (1) Sepsis secondary to UTI: (2) Pyelonephritis: (3) Abdominal pain: (4) Nausea & vomiting: Afebrile so far Leukocytosis resolved Urine culture positive for E. coli Blood cultures pending Continue Zosyn IV day #2 Monitor closely (5) Acute dehydration: Creatinine at baseline DC IV fluids secondary to hypertension Encourage oral fluid intake (6) Hypokalemia: Resolved (7) CKD (chronic kidney disease), stage III: Creatinine at baseline (8) Elevated BP without diagnosis of hypertension: Blood pressure still elevated, still having headache-improving Likely secondary to underlying illness, stress CT head: No acute process, no bleed Patient's brother has a history of brain aneurysm, patient already received IV contrast with CAT scan yesterday, will need CT angiogram of the head at some point for screening Start amlodipine 5 mg p.o. daily Monitor closely (9) Hypothyroidism: Continue levothyroxine (10) DVT prophylaxis: Hold Lovenox secondary to elevated blood pressure Monitor Disposition Anticipate discharge home medically stable in 1 to 2 days Plan of care discussed with patient in detail at length All questions were answered She is understanding, comfortable, agreeable with the plan of care Admission and Anticipated Discharge Date Admission Date: September 14, 2019 Subjective Follow-up for sepsis secondary to acute pyelonephritis Seen resting in bed, comfortable, not in distress, pleasant, oriented x3 States she feels improved compared to yesterday Denies back pain, flank pain, abdominal pain No dysuria, reports urgency though Tolerating clear liquids well today No chest pain, shortness of breath, palpitations, dizziness Was having 5 out of 10 headache mostly frontal this morning, improved now No focal neurologic deficits No other symptoms Review of Systems Review of Systems: All systems reviewed & are unremarkable except as noted in HPI & below Physical Exam Physical Exam: General- oriented x 3, not in distress, speaks in sentences with no effort or accessory muscle use Head- atraumatic Eyes- PERRL, EOMI, anicteric ENT- oropharynx clear Neck- supple, no JVD, no adenopathy, no thyromegaly; carotids +2/2, no bruits appreciated Lungs- clear to auscultation bilaterally, no rales/wheezes Heart- normal rate, regular rhythm; no murmur, no gallop, no rub appreciated Abdomen- normal bowel sounds, nondistended, soft, nontender, no masses or hepatosplenomegaly, no CVA tenderness Extremities- no pretibial edema, no calf tenderness; peripheral pulses intact Neuro- alert, oriented x 3; CN 2-12 grossly intact; motor 5/5 bilaterally;sensation 100% on all extremities; no other gross focal neurologic deficits Skin- warm & dry Results & Data Results & [facility] ([facility]) Vital Signs (Past 12 Hours) Vital Signs Temp Pulse Pulse Resp BP BP Pulse Ox 09/15/19 16:00 74 09/15/19 15:30 36.4 C L 71 18 165/79 H 95 09/15/19 11:06 36.9 C 91 H 19 163/84 H 94 09/15/19 08:00 79 09/15/19 07:47 37.1 C 95 H 19 165/76 H 93 Laboratory Results Laboratory Results - last 24 hr 09/14/19 09/15/19 09/15/19 14:50 06:11 06:11 WBC 9.78 RBC 4.32 Hgb 12.2 Hct 36.9 L MCV 85.4 MCH 28.2 MCHC 33.1 RDW Std Deviation 44.6 RDW Coeff of Andreina 14.1 Plt Count 177 MPV 11.6 H Sodium 138 Potassium 3.6 Chloride 107 Carbon Dioxide 22 Anion Gap 9.0 BUN 11 Creatinine 1.08 Est Cr Clr Drug Dosing 52.3 Est GFR ( Amer) 60.2 Est GFR (Non-Af Amer) 52.0 BUN/Creatinine Ratio 9.8 L Glucose 91 Calcium 8.2 L Magnesium 2.1
[2019-09-15] MEDS: AMLODIPINE BESYLATE 5 MG TAB PO SCH (19:52)
[2019-09-15] MEDS: ENOXAPARIN INJ 40 MG/0.4 ML SYR SQ SCH (20:45)
[2019-09-16] MEDS: ONDANSETRON INJ 2 MG/ML 2 ML VIAL IV PRN (00:21)
[2019-09-16] MEDS: ACETAMINOPHEN 325 MG TAB PO PRN (03:22)
[2019-09-16] MEDS: PIPERACILLIN/TAZOBACTAM 3.375 GM in DEXTROSE 5% 100 ML IV SCH (05:46)
[2019-09-16] MEDS: LEVOTHYROXINE SODIUM 88 MCG TABLET PO SCH (05:46)
[2019-09-16] MEDS: VENLAFAXINE HCL XR 150 MG CAPXR PO SCH (08:42)
[2019-09-16] MEDS: AMLODIPINE BESYLATE 5 MG TAB PO SCH (08:42)
[2019-09-16] MEDS: PANTOprazole 40 MG TAB PO SCH (08:42)
[2019-09-16] MEDS: ATORVASTATIN 10 MG TAB PO SCH (08:42)
[2019-09-16] MEDS: FLUTICASONE FUROATE 100MCG 14 PUFFS/INHALER INH SCH (08:44)
[2019-09-16] MEDS: UMECLIDINIUM/VILANTEROL 62.5/25MCG 7 PUFFS/INHALER INH SCH (08:44)
[2019-09-16] MEDS: RALOXIFENE HCL 60 MG TAB PO SCH (08:46)
[2019-09-16 08:51] LABS: Basophils # (auto) 0.01 K/uL (0-0.2); Basophils % (auto) 0.2 %; Eosinophils # (auto) 0.01 K/uL (0-0.5); Eosinophils % (auto) 0.2 %; Hematocrit (blood only) 39.1 % (37-47); Hemoglobin 12.8 g/dL (12.0-16.0); Immature Granulocytes # (auto) 0.04 K/uL (0.00-0.02); Immature Granulocytes % (auto) 0.6 %; Lymphocytes # (auto) 0.74 K/uL (1.2-3.4); Lymphocytes % (auto) 11.7 %; Mean Corpuscular Hemoglobin 27.8 pg (25-34); Mean Corpuscular Hgb Conc 32.7 g/dL (32-36); Mean Corpuscular Volume 84.8 fL (80-100); Mean Platelet Volume 10.8 fL (7.4-10.4); Monocytes # (auto) 0.94 K/uL (0.11-0.59); Monocytes % (auto) 14.9 %; Neutrophils # (auto) 4.56 K/uL (1.4-6.5); Neutrophils % (auto) 72.4 %; Platelet Count 178 K/uL (130-400); RDW Coefficient of Variation 13.8 % (11.5-14.5); RDW Standard Deviation 42.9 fL (36.4-46.3); Red Blood Count 4.61 M/uL (4.2-5.4)
[2019-09-16 09:18] LABS: BUN Creatinine Ratio 7.3 (10-20); Calcium 8.4 mg/dl (8.5-10.1); Creatinine Clr Calc Pharmacy 54.8 ml/min; Est GFR (African American) 63.8; Potassium 3.3 mmol/L (3.5-5.1)
[2019-09-16] MEDS: CEFDINIR 300 MG CAP PO SCH ×2 (09:20→20:29)
[2019-09-16] MEDS ORDERED: POTASSIUM CHLORIDE 20 MEQ TABCR PO STA (17:20)
[2019-09-16] MEDS ORDERED: HydrALAZINE HCL 20 MG/ML VIAL IV PRN (19:03)
--- NOTE | 2019-09-16 19:03 | Hospitalist Progress Note ---
Date of Service September 16, 2019 Assessment & Plan (1) Sepsis secondary to UTI: (1) Sepsis secondary to UTI: (2) Pyelonephritis: (3) Abdominal pain: (4) Nausea & vomiting: Remains afebrile Leukocytosis resolved Urine culture positive for E. coli, pansensitive Blood cultures negative so far Received 2 days of IV Zosyn, transition to cefdinir twice a day to complete 14 days Monitor closely (5) Acute dehydration: Creatinine at baseline Encourage oral fluid intake (6) Hypokalemia: Resolved (7) CKD (chronic kidney disease), stage III: Creatinine at baseline (8) Elevated BP without diagnosis of hypertension: Amlodipine started for uncontrolled blood pressure Likely secondary to underlying illness, stress CT head: No acute process, no bleed Patient's brother has a history of brain aneurysm, patient already received IV contrast with CAT scan yesterday, will need CT angiogram of the head at some point for screening--> plan for tomorrow Blood pressure improving Continue amlodipine 5 mg p.o. daily Add hydralazine as needed for systolic BP more than 160 (9) Hypothyroidism: Continue levothyroxine (10) DVT prophylaxis: Hold Lovenox secondary to elevated blood pressure Monitor Disposition Anticipate discharge home medically stable tomorrow Plan of care discussed with patient in detail at length All questions were answered She is understanding, comfortable, agreeable with the plan of care Admission and Anticipated Discharge Date Admission Date: September 14, 2019 Subjective Follow-up for pyelonephritis, E. coli UTI, hypertension Seen resting in bed, comfortable, not in distress States she feels improved today compared to yesterday No problems urination, no flank pain or back pain Headache has resolved, nausea has resolved Tolerating Jell-O well Denies chest pain, shortness of breath, palpitations, dizziness No other symptoms Review of Systems Review of Systems: All systems reviewed & are unremarkable except as noted in HPI & below Physical Exam Physical Exam: General- oriented x 3, not in distress, speaks in sentences with no effort or accessory muscle use Eyes- anicteric Neck- no JVD Lungs- clear breath sounds bilaterally, no rales/wheezes Heart- normal rate, regular rhythm; no murmurs Abdomen- normal bowel sounds, nondistended, soft, nontender No CVA tenderness Extremities- no pretibial edema, no calf tenderness Neuro- alert, oriented x 3; no gross focal neurologic deficits Skin- warm & dry Results & Data Results & Data ([facility]) Vital Signs (Past 12 Hours) Vital Signs Temp Pulse Pulse Resp BP Pulse Ox 09/16/19 15:28 36.9 C 91 H 20 165/82 H 93 09/16/19 14:21 112 H 09/16/19 11:45 36.7 C 92 H 16 161/84 H 95 09/16/19 07:39 36.6 C 85 16 157/82 H 96 09/16/19 07:00 86
[2019-09-17] MEDS: LEVOTHYROXINE SODIUM 88 MCG TABLET PO SCH (05:18)
[2019-09-17 06:52] LABS: BUN Creatinine Ratio 6.2 (10-20); Calcium 9.1 mg/dl (8.5-10.1); Creatinine Clr Calc Pharmacy 60.8 ml/min; Est GFR (African American) 73.1; Est GFR (Non-African American) 63.1; Potassium 3.3 mmol/L (3.5-5.1)
[2019-09-17] MEDS ORDERED: POTASSIUM CHLORIDE 20 MEQ TABCR PO STA (08:24)
[2019-09-17] MEDS ORDERED: SODIUM CHLORIDE 0.9% 1000ML 1,000 ML IV SCH (08:30)
[2019-09-17] MEDS: ATORVASTATIN 10 MG TAB PO SCH (08:52)
[2019-09-17] MEDS: VENLAFAXINE HCL XR 150 MG CAPXR PO SCH (08:52)
[2019-09-17] MEDS: CEFDINIR 300 MG CAP PO SCH (08:52)
[2019-09-17] MEDS: PANTOprazole 40 MG TAB PO SCH (08:52)
[2019-09-17] MEDS: RALOXIFENE HCL 60 MG TAB PO SCH (08:53)
[2019-09-17] MEDS: AMLODIPINE BESYLATE 5 MG TAB PO SCH (08:53)
[2019-09-17] MEDS: FLUTICASONE FUROATE 100MCG 14 PUFFS/INHALER INH SCH (08:53)
[2019-09-17] MEDS: UMECLIDINIUM/VILANTEROL 62.5/25MCG 7 PUFFS/INHALER INH SCH (08:53)
[2019-09-17] MEDS ORDERED: OPTIRAY 320 125ml IV PRN (11:31)
--- NOTE | 2019-09-17 12:13 | CT Scan Report ---
CT angio head w con HISTORY: headache, r/o aneurysm TECHNIQUE: Multiaxial CT angiography of the head was performed IV contrast: 119 cc nonionic Maximu m intensity projection images were also obtained. A dose lowering technique was utilized adhering to the principles of ALARA. COMPARISON: None. FINDINGS: There is no mass, hematoma, midline shift, or acute infarct. Visualized intracranial events intern al carotid arteries, distal vertebral arteries, and basilar artery are widely patent. There is no sig nificant stenosis, occlusion, or aneurysm seen within the bilateral ACAs, MCAs, or fruit grader. IMPRESSION: No significant stenosis, occlusion, or aneurysm within the [place] of [place]. ACT 112: Negative or not required by law. The above report was generated using voice recognition software. It may contain grammatical, syntax or spelling errors. Electronically signed by: Juan A Galvez M.D. 09/17/2019 12:11 PM
--- NOTE | 2019-09-17 15:48 | Hospitalist Progress Note ---
Date of Service delayed entry date of service noted below September 17, 2019 Assessment & Plan (1) Sepsis secondary to UTI: (1) Sepsis secondary to UTI: (2) Pyelonephritis: (3) Abdominal pain: (4) Nausea & vomiting: Remained afebrile Leukocytosis resolved Urine culture positive for E. coli, pansensitive Blood cultures negative Received 2 days of IV Zosyn, transition to cefdinir twice a day to complete 14 days ff up with PCP in 1 week (5) Acute dehydration: given IV fluids Creatinine at baseline Encourage oral fluid intake (6) Hypokalemia: mild, 3.3 prescribed with K supplement repeat K on ff up with PCP (7) CKD (chronic kidney disease), stage III: Creatinine at baseline patient received IV contrast twice during admission please repeat basic metabolic panel upon ff up with PCP this week (8) Hypertension no history of HTN systolic BP in the 160-170s from stress, infection? Amlodipine started for uncontrolled blood pressure Likely secondary to underlying illness, stress CT head: No acute process, no bleed Blood pressure improved to systolic 130s Continue amlodipine 5 mg p.o. daily ff up with PCP (9) Headache likely secondary to underlying infection, stress CT head: no acute process, (+) chronic microvascular ischemic disease. CT head angio: No significant stenosis, occlusion, or aneurysm within the [place] of [place]. resolved upon discharge (9) Hypothyroidism: Continue levothyroxine Disposition discharge to home ff up with PCP in 1 week, scheduling office closed, clinic to call patient on Thursday Plan of care discussed with patient in detail at length All questions were answered She is understanding, comfortable, agreeable with the plan of care Admission and Anticipated Discharge Date Admission Date: September 14, 2019 Subjective ff up for pyelonephritis, etc. seen resting in bed, comfortable, in good spirits states she feels much better overall denies flank, abdominal pain, problems with urination nausea has resolved headache also resolved no other symptoms states she is ready and would like to be discharged Review of Systems Review of Systems: All systems reviewed & are unremarkable except as noted in HPI & below Physical Exam Physical Exam: General- oriented x 3, not in distress, speaks in sentences w ith no effort or accessory muscle use Eyes- anicteric Neck- no JVD Lungs- clear breath sounds , no rales BL Heart- normal rate, regular rhythm; no murmurs Abdomen- normal bowel sounds, nondistended, soft, nontender no CVA tenderness Extremities- no pretibial edema, no calf tenderness Neuro- alert, oriented x 3; no gross focal neurologic deficits Skin- warm & dry Results & Data Results & Data ([facility]) Vital Signs (Past 12 Hours) Vital Signs Temp Pulse Pulse Resp BP BP Pulse Ox 09/17/19 14:41 37.0 C 109 H 20 136/85 164/84 H 96 09/17/19 14:20 99 H 09/17/19 14:09 37.0 C 109 H 20 136/85 164/84 H 96 09/17/19 07:52 37.0 C 109 H 20 136/85 96 09/17/19 07:00 84 09/17/19 04:16 37.1 C 109 H 17 142/81 H 95
--- NOTE | 2019-09-18 19:29 | Discharge Summary ---
Date of Service September 18, 2019 Admission HPI Per Admitting Provider Patient is a 69 yo female with PMHx including CKD III, hypothyroidism, & COPD who presented to the ED with concern of abdominal pain, N/V, and fever at home. She started to have symptoms Thursday evening at which time she ate some potato salad and heather slaw that she thought might be out of date. She felt that it was bad, and soon after she started to feel poorly. By Thursday morning, she noted N/V, increased urination with urgency, fever up to 103 F, frontal headache, and vague generalized abdominal pain. She has continued to have these symptoms worsening over the past few days. She hasn't taken any of her home meds since Thursday night due to N/V. She had a kidney infection when she was young, but otherwise no recent UTIs. No chest pain, dysphagia, or peripheral edema. Upon presentation, patient was noted to have severely elevated BP up to 202/110 without a formal diagnosis of HTN as an outpatient. She had hyponatremia and hypokalemia. Hyponatremia has improved but continued hypokalemia. No further vomiting. She has shaking chills on and off. No fever currently. Last antipyretic taken last night at 3AM. Abdominal/pelvic CT showed left sided pyelonephritis and pyelitis with probable cystitis. CXR showed signs of emphysema but no acute changes. Urine culture pending. Zosyn given in the ED. Lopressor also given. WBC count 13 with bandemia. ESR 42. CRP 8.8. Creatinine 1.12. Admission Exam Per Admitting Provider Constitutional: WD/WN, vitals as above Eyes: PERRL, conjunctivae normal, anicteric sclerae ENMT: external ear and nose normal, oropharynx normal Neck: trachea midline, no thyromegaly Respiratory: normal respiratory effort; no respiratory distress and no labored breathing Cardiovascular: RRR, no murmur, no edema Gastrointestinal (Abdomen): normal bowel sounds, soft, nontender, no hepatosplenomegaly Musculoskeletal: Head/Neck/Chest: + head abnormal to inspection, normocephalic and head atraumatic Extremities: extremities normal to inspection Skin: no rashes, warm and dry Psychiatric: A+Ox3, euthymic affect Principal Diagnosis SEPSIS SECONDARY TO ACUTE PYELONEPHRITIS, E COLI URINARY TRACT INFECTION Discharge Exam General- oriented x 3, not in distress, speaks in sentences with no effort or accessory muscle use Eyes- anicteric Neck- no JVD Lungs- clear breath sounds , no rales BL Heart- normal rate, regular rhythm; no murmurs Abdomen- normal bowel sounds, nondistended, soft, nontender no CVA tenderness Extremities- no pretibial edema, no calf tenderness Neuro- alert, oriented x 3; no gross focal neurologic deficits Skin- warm & dry Discharge Data Allergies Allergy/AdvReac Type Severity Reaction Status Date / Time formoterol [From Dulera] Allergy Severe Unknown Unverified 09/14/19 16:04 mometasone furoate Allergy Severe Unknown Unverified 09/14/19 16:04 [From Dulera] Consultations 09/14/19 16:47 ED Decision to Admit Stat 09/14/19 19:06 Consult Case Management - Discharge Planning Routine Ordered Studies 09/14/19 14:30 CT abd pelvis IV con only Stat COMPARISON STUDY: None. TECHNIQUE: Following IV administration of 94 mL of Optiray-320, axial images of the abdomen and pelvis were obtained from the lung bases to the proximal femurs. Images were reviewed in the axial, sagittal, and coronal planes. IV contrast was administered without complication. Automated exposure control was utilized for the study. A dose lowering technique was utilized adhering to the principles of ALARA. CT DOSE: 578.75 mGy.cm FINDINGS: Lung bases are unremarkable. No pneumatosis, free air or portal venous gas is present. The liver, spleen, adrenal glands, right kidney and pancreas are unremarkable. A subcentimeter hypodense lesion within the lower pole the right kidney likely contains fat. 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 There are multiple hypoenhancing foci within the left kidney with perinephric infiltration. There is asymmetric enhancement of the left ureteral wall. Mild bladder wall thickening with adjacent infiltration is noted. There are no urinary calculi. There is no renal abscess. No hydronephrosis is present. Colonic diverticulosis is noted without evidence for acute diverticulitis. No lymphadenopathy is present. There is no evidence for a bowel obstruction. The appendix is normal. No suspicious osseous lesions are present. IMPRESSION: Findings consistent with left sided pyelonephritis and pyelitis. Probable cystitis. No renal abscess. No hydronephrosis. 09/15/19 11:04 CT head/brain wo con Stat COMPARISON: None. FINDINGS: No acute intracranial hemorrhage, midline shift, intracranial mass, hydrocephalus, territorial ischemia or abnormal extra-axial collection. Mild age-related involutional changes. Mild patchy white matter hypodensities suggest chronic microvascular ischemic disease. The calvarium is intact. Trace right mastoid effusion. The left mastoid air cells are clear. The paranasal sinuses are generally clear. Hypoplastic frontal sinuses. Prior bilateral lens replacement. Soft tissues are unremarkable. IMPRESSION: No acute intracranial abnormality. 09/17/19 08:25 CT angio head w con Routine FINDINGS: There is no mass, hematoma, midline shift, or acute infarct. Visualized intracranial internal carotid arteries, distal vertebral arteries, and basilar artery are widely patent. There is no significant stenosis, occlusion, or aneurysm seen within the bilateral ACAs, MCAs, or counter clerk. IMPRESSION: No significant stenosis, occlusion, or aneurysm within the agdaagux of Lisa. Hospital Course (1) Sepsis secondary to UTI: (1) Sepsis secondary to UTI: (2) Pyelonephritis: (3) Abdominal pain: (4) Nausea & vomiting: Remained afebrile Leukocytosis resolved Urine culture positive for E. coli, pansensitive Blood cultures negative Received 2 days of IV Zosyn, transition to cefdinir twice a day to complete 14 days ff up with PCP in 1 week (5) Acute dehydration: given IV fluids Creatinine at baseline Encourage oral fluid intake (6) Hypokalemia: mild, 3.3 prescribed with K supplement repeat K on ff up with PCP (7) CKD (chronic kidney disease), stage III: Creatinine at baseline patient received IV contrast twice during admission please repeat basic metabolic panel upon ff up with PCP this week (8) Hypertension no history of HTN systolic BP in the 160-170s from stress, infection? Amlodipine started for uncontrolled blood pressure Likely secondary to underlying illness, stress CT head: No acute process, no bleed Blood pressure improved to systolic 130s Continue amlodipine 5 mg p.o. daily ff up with PCP (9) Headache likely secondary to underlying infection, stress CT head: no acute process, (+) chronic microvascular ischemic disease. CT head angio: No significant stenosis, occlusion, or aneurysm within the agdaagux of Lisa. resolved upon discharge (9) Hypothyroidism: Continue levothyroxine Disposition discharge to home ff up with PCP in 1 week, scheduling office closed, clinic to call patient on Thursday Plan of care discussed with patient in detail at length All questions were answered She is understanding, comfortable, agreeable with the plan of care Total Time Total Time Spent Total Time Spent (In Minutes): 55 MINUTES Discharge Plan Discharge Items Patient Disposition: Home - Self-Care Reason For Visit: UROSEPSIS Discharge Diagnosis: Urinary tract infection, kidney infection Condition on Discharge: Good Activity: Resume your previous activity Activity Comment: Gradually as tolerated Lifting: Wait until after follow-up appointment Exercise/Sports: Wait until after follow-up appointment Driving/Machine Use: No driving until allowed and reevaluated by primary care physician Non-emergency contact: Primary Care Provider Call non-emergency contact if: you have any medication questions, your symptoms worsen, your pain is not controlled, your pain is worsening, your pain is unusual for you, your pain is concerning for you and you have a fever Follow-up/Referrals: Mallika Jauregui, [Primary Care Provider] - Diet: Heart Healthy Addtl Attending Provider Instructions: Your new medications are: Cefdinir 300 mg every 12 hours for 12 days- antibiotic for kidney infection Culturelle once a day-probiotic Amlodipine 5 mg daily-to lower your blood pressure Potassium daily x5 days. Please review your new medication list and follow instructions carefully. Drink plenty of water. Do not use medications under the class of NSAIDs, including ibuprofen, naproxen, etc. Follow-up with your primary care physician next week. [facility] will be calling you for your appointment schedule on Thursday. Your potassium is mildly low. Please include bananas, tomatoes, potatoes, oranges and peanuts in your daily diet. Call your primary care physician or return to the ER immediately if with worsening of symptoms including flank or back pain, Abdominal pain, problems with urination, blood in your urine, fevers or chills, diarrhea, headache, chest pain or shortness of breath. Take care. Pending Studies at Discharge: Yes Studies:: Repeat blood work-basic metabolic panel care of primary care physician on follow-up this week Stand-Alone Forms: [email or web address], Smoking Cessation Medications and DC Order Prescriptions: New amlodipine [Norvasc] 5 mg Tablet 5 mg PO QAM Qty: 30 RF: 2 cefdinir 300 mg Capsule 300 mg PO Q12H Qty: 24 RF: 0 Anoro Ellipta 62.5-25 mcg/actuation Blister With Device 1 ea inhalation DAILY Qty: 60 RF: 0 Culturelle 10 billion cell capsule 1 cap PO DAILY Qty: 30 RF: 2 potassium chloride [Klor-Con 10] 10 mEq tablet extended release 20 meq PO DAILY Qty: 10 RF: 0 Continued albuterol sulfate 90 mcg/actuation HFA aerosol inhaler 2 puffs inhalation Q4H PRN (Reason: shortness of breath or wheezing) Qty: 18 RF: 5 albuterol sulfate 2.5 mg /3 mL (0.083 %) solution for nebulization 2.5 mg INH Q4H PRN (Reason: shortness of breath or wheezing) Qty: 360 RF: 5 atorvastatin 10 mg tablet 5 mg PO DAILY RF: 0 Trelegy Ellipta 100-62.5-25 mcg blister with device 1 inh inhalation DAILY RF: 0 venlafaxine [Effexor XR] 150 mg capsule,extended release 24hr 150 mg PO DAILY RF: 0 levothyroxine 88 mcg tablet 88 mcg PO DAILY RF: 0 nystatin 100,000 unit/gram cream 1 applic TOPICAL BID RF: 0 omeprazole 20 mg capsule,delayed release(DR/EC) 20 mg PO DAILY RF: 0 raloxifene [Evista] 60 mg tablet 60 mg PO DAILY RF: 0 hydrocortisone 2.5 % Cream 1 applic TOPICAL TID PRN (Reason: AFFECTED AREA) RF: 0 nystatin [Nystop] 100,000 unit/gram powder 1 applic TOPICAL TID RF: 0 acetaminophen [Tylenol Extra Strength] 500 mg Tablet 500 mg PO Q6H PRN (Reason: Pain) RF: 0 Discharge Orders: Discharge Order (Routine); Ordered 09/17/19 Ordered By: Venu Sotelo Admission Data Admit Date/Time: 09/14/19 17:50 Attending Provider: Venu Sotelo Admit Provider: Juwan Saeed Primary Care Provider: Mallika Jauregui Other Providers: Juwan Saeed Other Interventions: Discharge Summary Assessment (RN) Last Done: 09/17/19 14:41 DC Date/Time DO NOT enter until pt leaves facility: 09/17/19 15:38
== END 2019-09-17 15:38 | disposition home or self-care (01) | DRG 872 ==
LOC: ED 14:09 → SUATTDRO 17:50 → 2S 17:50 → 2N 09-16 00:11

== ENCOUNTER 2024-09-26 15:50 | Inpatient (IN) ==
[2024-09-26 16:19] LABS: Appearance Urine Clear (Clear); Bacteria Urine Automated None Seen (None Seen); Cast Urine Automated 0-2 /lpf (0-2); Epithelial Cell Urine Auto 0-2 /hpf (0-2); Glucose Urine UA Negative (Negative); RBC Urine Automated 0-2 /hpf (0-2); WBC Urine Automated 0-5 /hpf (0-5)
[2024-09-26 16:21] LABS: Hematocrit (blood only) 36.4 % (37.0-47.0); Hemoglobin 11.8 g/dl (12.0-16.0); Immature Granulocytes # (auto) 0.05 K/uL (0.01-0.20); Immature Granulocytes % (auto) 0.7 %; Mean Corpuscular Hemoglobin 26.2 pg (25.0-34.0); Mean Corpuscular Volume 80.7 fL (80.0-100.0); Platelet Count 269 K/uL (130-400); RDW Standard Deviation 42.9 fL (36.4-46.3); Red Blood Count 4.51 M/uL (4.20-5.40); White Blood Count 7.35 K/ul (4.8-10.8)
[2024-09-26 16:55] LABS: Alanine Aminotransferase 54 U/L (7-52); Bilirubin,Total 0.7 mg/dl (0.2-1.0); Blood Urea Nitrogen 7 mg/dl (6-23); Calcium 8.8 mg/dl (8.6-10.3); Carbon Dioxide 23 mmol/L (21-32); Chloride 94 mmol/L (98-107); Creatinine Clr Calc Pharmacy 55.1 ml/min; Glucose 121 mg/dl (70-99(Fasting)); Total Protein 7.3 gm/dl (6.0-8.3)
[2024-09-26] MEDS: OPTIRAY 320 100ml IV ONE (17:48)
[2024-09-26 18:02] LABS: Potassium 3.9 mmol/L (3.5-5.1); Sodium 126.0 mmol/L (136-145)
--- NOTE | 2024-09-26 18:03 | Emergency Department Note ---
Impression & Plan Fever, Diarrhea, Hyponatremia, Anaplasmosis ED Provider Note ED Provider Note NAME: ALEX URRUTIA AGE:74 SEX: Female : 1950 ARRIVES VIA: private vehicle INFORMANT: Patient ED PROVIDER(s): Felicia Gutierrez DO CHIEF COMPLAINT: fever, diarrhea, headache HPI: This is a 74-year-old female who presents to the emergency department due to concern for 1 week of fevers, headaches, urinary symptoms. Patient states symptoms are similar to when she has had a urinary tract infection. Patient states she was seen and evaluated here earlier this week after discussing her symptoms with her family doctor. Patient states she did have a few episodes of urge incontinence which she states is similar to when she previously had a kidney infection as well. She denies any recent travel, sick contacts, or change in medications. Patient states because of her symptoms she was started on amoxicillin and has been taking that for 2 days as well. She has had intermittent abdominal cramping. PAST MEDICAL HISTORY:See Below PAST SURGICAL HISTORY:See Below FAMILY HISTORY:See Below SOCIAL HISTORY:See Below HOME MEDICATIONS:See Below ALLERGIES:See Below VITALS:See Below PHYSICAL EXAMINATION: GENERAL: alert, well appearing, well nourished, no distress, non-toxic EYE EXAM: normal conjunctiva, PERRL and EOM's grossly intact OROPHARYNX: no exudate, no erythema, lips, buccal mucosa, and tongue normal and mucous membranes are moist NECK: supple, no nuchal rigidity, no adenopathy, non-tender, FROM LUNGS: Clear to auscultation. Normal chest wall mechanics, no w/r/r HEART: no murmurs, S1 normal and S2 normal ABDOMEN: abdomen soft, non-tender, normo-active bowel sounds, no masses, no rebound or guarding. BACK: Back is symmetrical on inspection and there is no deformity, no midline tenderness, no CVA tenderness. SKIN: no rashes, petechiae, orbruising UPPER EXTREMITIES: upper extremities are grossly normal. FROM, nml pulses b/l. LOWER EXTREMITIES: No pitting edema. FROM, nml pulses b/l. NEURO EXAM: Normal sensorium, cranial nerves II-XII grossly intact, normal speech, no facial droop,nogross weakness of arms, no gross weakness of legs. Gross sensation intact. No ataxia. Vital Signs: reviewed and remarkable Differential Diagnosis: viral syndrome, otitis, pharyngitis, pneumonia, influenza, meningitis, urinary tract infection, sepsis, bacteremia, tick borne illness, as well as others were entertained. MEDICAL DECISION MAKING: THis is a 74 yo female who presents to the ER with concern for persistent fevers, headaches, recent diarrhea, and urinary symptoms. She was afebrile and VS stable in the ER. Labs drawn and sent, IV established, and patient placed on telemetry. Patient sent for CT a/p additionally after review of prior labs and imaging. Urine collected and did not suggest infection. Patient noted to have positive anaplasma screen. She was started on doxycycline. Patient noted to have hyponatremia, worse compared to prior earlier this week. Given symptoms, worsening hyponatremia, advanced age, and comorbid conditions, case discussed with the hospitalist team for additional evaluation and mgmt. Consultation(s): 193: Discussed with Dr. Moran, [facility] hospitalist team, for additional evaluation and mgmt. ER Treatment Provided: See below Diagnostics Interpreted By Me: -Cardiac Monitoring: An order was placed for continuous cardiac monitoring. The monitor shows a rate of 98 with normal sinus rhythm. -Laboratory studies: As stated above and show below. -Imaging studies: ct a/p - no sbo, no colitis, no pyelo Triage Nursing Note Reviewed Prior/Outside Records Reviewed Past Med/Surg History Problem List (Updated 09/26/24 @ 19:34 by Felicia Gutierrez DO) Anaplasmosis (Acute) Hyponatremia (Acute) Diarrhea (Acute) Fever (Acute) Hyponatremia (Acute) Gastroenteritis (Acute) Dyspnea Chronic bronchitis Post-nasal drainage Chronic laryngitis Hypokalemia Elevated BP without diagnosis of hypertension Medical marijuana use DVT prophylaxis Hypothyroidism CKD (chronic kidney disease), stage III COPD (chronic obstructive pulmonary disease) Sepsis secondary to UTI Pyelonephritis (Acute) Abdominal pain (Acute) Nausea & vomiting (Acute) Acute dehydration (Acute) Medical History (Updated 09/26/24 @ 19:34 by Felicia Gutierrez DO) Alcoholism in remission Solitary pulmonary nodule Pulmonary emphysema Osteopenia Lesion of vocal cord Dry eye syndrome Cough Anxiety Abnormal finding on lung imaging Hepatitis C Treated and cured Wheezing Surgical History (Updated 09/14/19 @ 18:30 by Anya Hung PA-C) S/P bronchoscopy Hx of tubal ligation H/O dilation and curettage H/O colonoscopy Family History (Updated 12/26/20 @ 15:30 by Ayala Pearson) Family/Other Osteoporosis Hypertension Myocardial infarction Daughter Cancer Breast cancer Father Heart disease Other No family history of allergies No family history of bleeding disorder Denies family history of Hearing loss Stroke Asthma Social History (Updated 12/09/21 @ 12:15 by MARIA C Chen) Smoking Status: Unknown if ever smoked Tobacco Type: Cigarettes Age Started Using Tobacco: 24; Age Quit Using Tobacco: 59; packs per day: 2; Do You Dip or Chew Tobacco: No; Hx Alcohol Use: No (Recovering Alcoholic ) Hx Substance Use: No Preferred Language: Turkish Communication Ability: Effective Beliefs That Will Affect Care: None marital status: Current Living Situation: Spouse current occupational status: retired Feels Safe at Home: Yes Seatbelt Use: always Assistive Devices: Glasses Allergies Allergies Allergy/AdvReac Type Severity Reaction Status Date / Time formoterol [From Dulera] Allergy Intermediate Hives Verified 09/26/24 18:56 mometasone furoate Allergy Intermediate Hives Verified 09/26/24 18:56 [From Dulera] Home Meds Home Medications Medication Instructions Recorded Confirmed acetaminophen 500 mg tablet 500 mg PO Q6H PRN Pain 09/14/19 09/26/24 (Tylenol Extra Strength) nystatin 100,000 unit/gram topical 1 applic topical BID PRN Rash 09/14/19 09/26/24 cream nystatin 100,000 unit/gram topical 1 applic topical DAILY PRN Rash 09/14/19 09/26/24 powder (Nystop) omeprazole 20 mg capsule,delayed 20 mg PO DAILY 09/14/19 09/26/24 release amlodipine 5 mg tablet (Norvasc) 10 mg PO QAM 08/15/22 09/26/24 atorvastatin 10 mg tablet 20 mg PO DAILY 08/15/22 09/26/24 aripiprazole 5 mg tablet 7.5 mg PO QAM 09/19/24 09/26/24 levothyroxine 75 mcg tablet 75 mcg PO QAM 09/19/24 09/26/24 metoprolol succinate 25 mg 25 mg PO QAM 09/19/24 09/26/24 tablet,extended release 24 hr venlafaxine 75 mg capsule,extended 75 mg PO QAM 09/19/24 09/26/24 release 24 hr amoxicillin 875 mg tablet 875 mg PO BID 09/26/24 09/26/24 Previous Rx's Medication Instructions Recorded albuterol sulfate 90 mcg/actuation 2 puffs inhalation Q4H PRN 06/14/19 aerosol inhaler shortness of breath or wheezing #18 grams umeclidinium 62.5 mcg-vilanterol 1 ea inhalation DAILY 90 days #90 08/20/22 25 mcg/actuation powdr for puffs inhalation (Anoro Ellipta) Results & Data (ED) Vital Signs Vital Signs - 24 hr 09/26/24 16:49 09/26/24 17:04 09/26/24 18:00 Temperature 37.2 C Temperature Source Oral Pulse Rate 85 Pulse Rate [Apical] 87 84 Respiratory Rate 16 18 Respiratory Effort / Characteristics Non-Labored Spontaneous Respiratory Depth Normal Blood Pressure Blood Pressure [Right Arm] 130/71 140/65 Blood Pressure Mean Blood Pressure Mean [Right Arm] 90 90 Pulse Oximetry 99 99 Oxygen Delivery Method Room Air Room Air Sepsis Recent Fever Within 48 Hours Sepsis New/Unexplained Change in Mental Status Sepsis Action Taken by Nursing 09/26/24 18:09 09/26/24 19:00 09/26/24 20:01 Temperature Temperature Source Pulse Rate 95 H 98 H Pulse Rate [Apical] Respiratory Rate 18 18 Respiratory Effort / Characteristics Respiratory Depth Blood Pressure 128/55 L 135/70 Blood Pressure [Right Arm] Blood Pressure Mean 73 88 Blood Pressure Mean [Right Arm] Pulse Oximetry 96 93 Oxygen Delivery Method Sepsis Recent Fever Within 48 Hours No Sepsis New/Unexplained Change in Mental Status No Sepsis Action Taken by Nursing No Action Required Laboratory Data 09/26/24 16:03 09/26/24 17:34 Lab Results 09/26/24 09/26/24 09/26/24 Range/Units 16:03 17:34 17:57 WBC 7.35 (4.8-10.8) K/ul RBC 4.51 (4.20-5.40) M/uL Hgb 11.8 L (12.0-16.0) g/dl Hct 36.4 L (37.0-47.0) % MCV 80.7 (80.0-100.0) fL MCH 26.2 (25.0-34.0) pg MCHC 32.4 (32.0-36.0) g/dL RDW Std Deviation 42.9 (36.4-46.3) fL RDW Coeff of Andreina 14.6 H (11.5-14.5) % Plt Count 269 (130-400) K/uL MPV 10.2 (9.4-12.4) fL Immature Gran % (Auto) 0.7 % Neut % (Auto) 72.0 % Lymph % (Auto) 18.5 % [place] % (Auto) 8.4 % Eos % (Auto) 0.1 % Baso % (Auto) 0.3 % Neut # (Auto) 5.29 (1.40-6.50) K/uL Lymph # (Auto) 1.36 (1.20-3.40) K/uL [place] # (Auto) 0.62 H (0.11-0.59) K/uL Eos # (Auto) 0.01 (0.00-0.50) K/uL Baso # (Auto) 0.02 (0.00-0.20) K/uL Immature Gran # (Auto) 0.05 (0.01-0.20) K/uL Sodium TNP 126 L Potassium TNP 3.9 Chloride 94 L (98-107) mmol/L Carbon Dioxide 23 (21-32) mmol/L Anion Gap TNP BUN 7 (6-23) mg/dl Creatinine 0.86 (0.6-1.2) mg/dl Est Cr Clr Drug Dosing 55.1 ml/min eGFR 70.41 BUN/Creatinine Ratio 8.1 L (10-20) Glucose 121 H (70-99(Fasting)) mg/dl Lactate 0.7 (0.4-2.0) mmol/L Calcium 8.8 (8.6-10.3) mg/dl Total Bilirubin 0.7 (0.2-1.0) mg/dl AST TNP 41 H ALT 54 H (7-52) U/L Alkaline Phosphatase TNP 91 Total Protein 7.3 (6.0-8.3) gm/dl Albumin TNP 3.9 Globulin TNP Albumin/Globulin Ratio TNP Procalcitonin 0.15 (0-0.5) ng/ml Urine Color Yellow Urine Appearance Clear (Clear) Urine pH >= 9.0 H (4.5-7.5) Ur Specific [place] 1.014 (1.000-1.030) Urine Protein Trace H (Negative) Urine Glucose (UA) Negative (Negative) Urine Ketones Negative (Negative) Urine Blood Negative (Negative) Urine Nitrite Negative (Negative) Urine Bilirubin Negative (Negative) Urine Urobilinogen Negative (Negative) Ur Leukocyte Esterase Negative (Negative) Urine WBC (Auto) 0-5 (0-5) /hpf Urine RBC (Auto) 0-2 (0-2) /hpf U Hyaline Cast (Auto) 0-2 (0-2) /lpf U Epithel Cells (Auto) 0-2 (0-2) /hpf Urine Bacteria (Auto) None Seen (None Seen) Urine Comment Adenovirus (PCR) Not Detected (NotDetected) Anaplasma Smear See Comment A Babesia Smear See Comment B. pertussis DNA (PCR) Not Detected (NotDetected) B.parapertussis DNA PCR Not Detected (NotDetected) C. pneumoniae DNA (PCR) Not Detected (NotDetected) Coronavirus OC43 (PCR) Not Detected (NotDetected) Coronavirus HKU1 (PCR) Not Detected (NotDetected) Coronavirus 229E (PCR) Not Detected (NotDetected) SARS-CoV-2 (PCR) Not Detected (NotDetected) Coronavirus NL63 (PCR) Not Detected (NotDetected) Human Metapneumovir PCR Not Detected (NotDetected) Influenza Type A (PCR) Not Detected (NotDetected) Influenza Type B (PCR) Not Detected (NotDetected) M. pneumoniae (PCR) Not Detected (NotDetected) Parainfluenza 1 (PCR) Not Detected (NotDetected) Parainfluenza 2 (PCR) Not Detected (NotDetected) Parainfluenza 3 (PCR) Not Detected (NotDetected) Parainfluenza 4 (PCR) Not Detected (NotDetected) RSV (PCR) Not Detected (NotDetected) Entero/Rhino (PCR) Not Detected (NotDetected) Administered Medications Discontinued Medications Sodium Chloride (Nss) 1,000 mls @ 999 mls/hr IV .Q1H1M ONE Stop: 09/26/24 18:14 Last Infusion: 09/26/24 19:44 Dose: Infused Documented By: Admin: 09/26/24 18:07 Dose: 999 mls/hr Documented By: AMY Doxycycline Hyclate 100 mg/ (Dextrose) 100 mls @ 50 mls/hr IV NOW STA Stop: 09/26/24 20:35 Last Infusion: 09/26/24 21:12 Dose: Infused Documented By: Infusion: 09/26/24 20:50 Dose: Infused Documented By: Admin: 09/26/24 18:50 Dose: 50 mls/hr Documented By: AMY Acetaminophen (Ofirmev) 1,000 mg in 100 mls @ 400 mls/hr IV NOW STA Stop: 09/26/24 20:48 Last Infusion: 09/26/24 21:15 Dose: Infused Documented By: Admin: 09/26/24 20:46 Dose: 400 mls/hr Documented By: SURESH Ioversol (Optiray 320 100ml) 93 ml IV ONCE ONE Stop: 09/26/24 17:48 Last Admin: 09/26/24 17:48 Dose: 93 ml Documented By: GALA Ondansetron HCl (Ondansetron Inj 2 Mg/Ml 2 Ml Vial) 4 mg IV NOW STA Stop: 09/26/24 21:00 Last Admin: 09/26/24 21:09 Dose: 4 mg Documented By: SURESH Imaging Data Radiologist's Impression: Abdomen/Pelvis CT 09/26/24 17:14 Clinical History: Diarrhea and fever Technique: Axial computed tomography images were obtained of the abdomen and pelvis after the administration of intravenous contrast. Comparison is made to the prior CT dated 09/14/2019. Findings: The liver is overall of normal size, attenuation, and contour with no sign of cirrhosis or significant fatty infiltration. No liver mass lesion is seen. The portal vein is patent. The gallbladder appears unremarkable. No bile duct dilatation is noted. The spleen is enlarged measuring 14.5 cm. No focal splenic lesion is evident. The pancreas appears normal with no sign of acute or chronic pancreatitis and no mass lesion noted. The pancreatic duct is of normal caliber. The adrenal glands appear unremarkable. No definite renal or proximal ureteral calculi are seen on this contrast-enhanced study. There is no hydronephrosis or perinephric stranding. No renal mass lesion is identified. There is a small 6 mm right renal cyst as well as a 3 mm right renal cyst. The aorta is of normal caliber. No abdominal adenopathy is seen. The stomach appears normal. There is no sign of small bowel obstruction. There is diverticulosis without definite diverticulitis. No free intraperitoneal fluid or air is identified. No distal ureteral or bladder calculi are seen. No bladder mass lesion is evident. The iliac arteries are of normal caliber. No pelvic adenopathy is noted. There is mild subsegmental atelectasis in the right lower lobe. Mild thoracolumbar degenerative disc disease is seen. No fracture is identified. No focal osseous lesion is seen Impression: 1. Small right renal cysts 2. Splenomegaly 3. Diverticulosis without definite diverticulitis Electronically signed by Riaz Beasley 09-26-2024 6:53 PM Discharge Plan Visit Data Chief Complaint: Urinary Symptoms Stated Complaint: FEVER, UTI ED Provider: Felicia Gutierrez Discharge Problem: Fever, Diarrhea, Hyponatremia, Anaplasmosis Patient Disposition: Admitted As Inpatient Condition: Fair Discharge Instructions Interventions: ED Discharge Assessment Last Done: 09/26/24 21:56
[2024-09-26] MEDS: SODIUM CHLORIDE 0.9% 1,000 ML IV ONE (18:07)
[2024-09-26 18:08] LABS: Alkaline Phosphatase 91.0 U/L (34-104)
[2024-09-26 18:14] LABS: Procalcitonin 0.15 ng/ml (0-0.5)
[2024-09-26] MEDS: DOXYCYCLINE HYCLATE 100 MG in DEXTROSE 5% MINI-B 100 ML IV STA (18:50)
[2024-09-26 18:52] LABS: Chlamydia pneumoniae PCR Not Detected (NotDetected); Coronavirus 229E PCR Not Detected (NotDetected); Coronavirus CoV-2 (COVID19)PCR Not Detected (NotDetected); Coronavirus HKU1 PCR Not Detected (NotDetected); Coronavirus NL63 PCR Not Detected (NotDetected); Coronavirus OC43PCR Not Detected (NotDetected); Human Metapneumovirus PCR Not Detected (NotDetected); Parainfluenza Virus 1 PCR Not Detected (NotDetected); Parainfluenza Virus 2 PCR Not Detected (NotDetected); Parainfluenza Virus 3 PCR Not Detected (NotDetected); Parainfluenza Virus 4 PCR Not Detected (NotDetected); Respiratory Syncytial VirusPCR Not Detected (NotDetected); Rhinovirus/Enterovirus PCR Not Detected (NotDetected)
--- NOTE | 2024-09-26 18:54 | CT Scan Report ---
Clinical History: Diarrhea and fever Technique: Axial computed tomography images were obtained of the abdomen and pelvis after the administration of intravenous contrast. Comparison is made to the prior CT dated 09/14/2019. Findings: The liver is overall of normal size, attenuation, and contour with no sign of cirrhosis or significant fatty infiltration. No liver mass lesion is seen. The portal vein is patent. The gallbladder appears unremarkable. No bile duct dilatation is noted. The spleen is enlarged measuring 14.5 cm. No focal splenic lesion is evident. The pancreas appears normal with no sign of acute or chronic pancreatitis and no mass lesion noted. The pancreatic duct is of normal caliber. The adrenal glands appear unremarkable. No definite renal or proximal ureteral calculi are seen on this contrast-enhanced study. There is no hydronephrosis or perinephric stranding. No renal mass lesion is identified. There is a small 6 mm right renal cyst as well as a 3 mm right renal cyst. The aorta is of normal caliber. No abdominal adenopathy is seen. The stomach appears normal. There is no sign of small bowel obstruction. There is diverticulosis without definite diverticulitis. No free intraperitoneal fluid or air is identified. No distal ureteral or bladder calculi are seen. No bladder mass lesion is evident. The iliac arteries are of normal caliber. No pelvic adenopathy is noted. There is mild subsegmental atelectasis in the right lower lobe. Mild thoracolumbar degenerative disc disease is seen. No fracture is identified. No focal osseous lesion is seen Impression: 1. Small right renal cysts 2. Splenomegaly 3. Diverticulosis without definite diverticulitis Electronically signed by Riaz Beasley 09-26-2024 6:53 PM
[2024-09-26] MEDS: ACETAMINOPHEN 1,000 MG/100 ML VIAL IV STA (20:46)
[2024-09-26] MEDS: ONDANSETRON INJ 2 MG/ML 2 ML VIAL IV STA (21:09)
[2024-09-26] MEDS ORDERED: ALBUTEROL HFA 8 GM INHALER INH PRN (22:24)
[2024-09-26] MEDS ORDERED: POLYETHYLENE (MIRALAX) 17 GM PACK PO PRN (22:24)
[2024-09-26] MEDS ORDERED: NYSTATIN CR 15 GM TUBE EXT PRN (22:24)
[2024-09-26] MEDS ORDERED: NITROGLYCERIN SL 0.4 MG/TAB TAB SL PRN (22:24)
[2024-09-26] MEDS: ENOXAPARIN INJ 40 MG/0.4 ML SYR SQ SCH (23:16)
[2024-09-26] MEDS: AMOXICILLIN 875 MG TAB PO SCH (23:16)
--- NOTE | 2024-09-27 02:12 | History & Physical Report ---
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 Patient was in the ER on with nausea vomiting and diarrhea and fevers and at that time Anaplasma/Babesia smear was negative and Lyme screen was negative and UA was unremarkable ,sodium was 128. After hydration and antiemetics she felt better and she was discharged to follow-up with PCP. Outpatient she was found to have UTI with beta Streptococcus group B and started on Augmentin 3 days ago. Today morning she developed high fever 104 degrees . Was having headache. Body aches. Appetite is poor. Frequent micturition. 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 Patient says she was bitten by flea about 10 days ago. Vision is okay. No runny nose or sore throat. No cough. Has some nausea. No chest pain. No abdominal discomfort. No rash. Hemodynamics are okay. Anaplasmosis Babesia smear is negative Lyme is pending Started on doxycycline IV Tylenol as needed Mild elevation of AST ALT will follow repeat labs Close monitor Recent UTI With beta strep group B Complete the course of Augmentin Hyponatremia Sodium 126 Received about liter of fluid in the ER Will follow repeat labs Urine osmolality, serum osmolality and urine sodium levels Nephro consult in a.m. for further recommendation Hyperlipidemia On statin Prediabetes Will follow HbA1c levels Paroxysmal SVT On metoprolol succinate GERD On omeprazole Hypothyroidism On Synthyroid CKD stage III Presented with creatinine 0.8 We will follow labs History of hepatitis C Treated with interferon and ribavirin 9 years ago as per epic Hypertension On amlodipine, metoprolol succinate Will monitor Anxiety disorder Depression On venlafaxine and aripiprazole COPD Continue home inhalers DVT prophylaxis Lovenox Disposition Telemetry Full code. 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 Patient was in the ER on with nausea vomiting and diarrhea and fevers and at that time Anaplasma/Babesia smear was negative and Lyme screen was negative and UA was unremarkable ,sodium was 128. After hydration and antiemetics she felt better and she was discharged to follow-up with PCP. Outpatient she was found to have UTI with beta Streptococcus group B and started on Augmentin 3 days ago. Today morning she developed high fever 104 degrees . Was having headache. Body aches. Appetite is poor. Frequent micturition. 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 Patient says she was bitten by flea about 10 days ago. V malachi is okay. No runny nose or sore throat. No cough. Has some nausea. No chest pain. No abdominal discomfort. No rash. Hemodynamics are okay. Past medical history. As mentioned above Past surgical history. Colonoscopy. Dilatation curettage. Vocal cord polyp removed. Hysteroscopy with biopsy. Ligation oviducts. Radial keratotomy. Right trigger finger release. Social history. . Quit smoking 2013. Smoked 1.5 pack a day for 40 years. Quit alcohol 13 years ago. Uses marijuana. Family history. Daughter had breast cancer age 48. Sister had breast cancer at age of 67. Father had hypertension. Heart disorder. Mental disorder. Daughter has thyroid disorder. Allergies Allergy/AdvReac Type Severity Reaction Status Date / Time formoterol [From Dulera] Allergy Intermediate Hives Verified 09/26/24 18:56 mometasone furoate Allergy Intermediate Hives Verified 09/26/24 18:56 [From Dulera] Home Medications Medication Instructions Recorded Confirmed Type albuterol sulfate 90 mcg/actuation 2 puffs inhalation Q4H PRN 06/14/19 09/26/24 Rx aerosol inhaler shortness of breath or wheezing #18 grams acetaminophen 500 mg tablet 500 mg PO Q6H PRN Pain 09/14/19 09/26/24 History (Tylenol Extra Strength) nystatin 100,000 unit/gram topical 1 applic topical BID PRN Rash 09/14/19 09/26/24 History cream nystatin 100,000 unit/gram topical 1 applic topical DAILY PRN Rash 09/14/19 09/26/24 History powder (Nystop) omeprazole 20 mg capsule,delayed 20 mg PO DAILY 09/14/19 09/26/24 History release amlodipine 5 mg tablet (Norvasc) 10 mg PO QAM 08/15/22 09/26/24 History atorvastatin 10 mg tablet 20 mg PO DAILY 08/15/22 09/26/24 History umeclidinium 62.5 mcg-vilanterol 1 ea inhalation DAILY 90 days #90 08/20/22 09/26/24 Rx 25 mcg/actuation powdr for puffs inhalation (Anoro Ellipta) aripiprazole 5 mg tablet 7.5 mg PO QAM 09/19/24 09/26/24 History levothyroxine 75 mcg tablet 75 mcg PO QAM 09/19/24 09/26/24 History metoprolol succinate 25 mg 25 mg PO QAM 09/19/24 09/26/24 History tablet,extended release 24 hr venlafaxine 75 mg capsule,extended 75 mg PO QAM 09/19/24 09/26/24 History release 24 hr amoxicillin 875 mg tablet 875 mg PO BID 09/26/24 09/26/24 History Past Med/Surg History Problem List (Updated 09/26/24 @ 19:34 by Felicia Gutierrez DO) Anaplasmosis (Acute) Hyponatremia (Acute) Diarrhea (Acute) Fever (Acute) Hyponatremia (Acute) Gastroenteritis (Acute) Dyspnea Chronic bronchitis Post-nasal drainage Chronic laryngitis Hypokalemia Elevated BP without diagnosis of hypertension Medical marijuana use DVT prophylaxis Hypothyroidism CKD (chronic kidney disease), stage III COPD (chronic obstructive pulmonary disease) Sepsis secondary to UTI Pyelonephritis (Acute) Abdominal pain (Acute) Nausea & vomiting (Acute) Acute dehydration (Acute) Medical History (Updated 09/26/24 @ 19:34 by Felicia Gutierrez DO) Alcoholism in remission Solitary pulmonary nodule Pulmonary emphysema Osteopenia Lesion of vocal cord Dry eye syndrome Cough Anxiety Abnormal finding on lung imaging Hepatitis C Treated and cured Wheezing Surgical History (Updated 09/14/19 @ 18:30 by Anya Hung PA-C) S/P bronchoscopy Hx of tubal ligation H/O dilation and curettage H/O colonoscopy Family History (Updated 12/26/20 @ 15:30 by Ayala Pearson) Family/Other Osteoporosis Hypertension Myocardial infarction Daughter Cancer Breast cancer Father Heart disease Other No family history of allergies No family history of bleeding disorder Denies family history of Hearing loss Stroke Asthma Social History (Updated 12/09/21 @ 12:15 by MARIA C Chen) Smoking Status: Former smoker Tobacco Type: Cigarettes Age Started Using Tobacco: 24; Age Quit Using Tobacco: 59; packs per day: 2; Do You Dip or Chew Tobacco: No; Hx Alcohol Use: Yes (alcoholic and quit 22 yrs ago) Hx Substance Use: No Preferred Language: Vincentian Communication Ability: Effective Beliefs That Will Affect Care: None marital status: Current Living Situation: Spouse current occupational status: retired Feels Safe at Home: Yes Seatbelt Use: always Assistive Devices: Glasses Review of Systems Review of Systems: All systems reviewed & are unremarkable except as noted in HPI & below Physical Exam Physical Exam: General- Not in distress Head- atraumatic Eyes- PERRL. ENT- oropharynx clear Neck- supple, no JVD Lungs- clear to auscultation no wheezing or crackles Heart- regular rhythm; no murmur, no gallop. Abdomen- normal bowel sounds, soft, nontender, no distension Extremities- no pretibial edema, no erythema seen Neuro- alert, oriented PERRL, no facial palsy; no dysarthria; moves extremities Results & Data Results & Data Vital Signs (Past 12 Hours) Vital Signs Temp Pulse Pulse Resp BP BP Pulse Ox 09/26/24 20:01 98 H 18 135/70 93 09/26/24 19:00 95 H 18 128/55 L 96 09/26/24 18:00 84 18 140/65 99 09/26/24 16:49 37.2 C 87 16 130/71 99 O2 Del Method 09/26/24 20:01 09/26/24 19:00 09/26/24 18:00 Room Air 09/26/24 16:49 Room Air Diagnostic Findings Laboratory Results WBC 7.35 K/ul (4.8-10.8) 09/26/24 16:03 RBC 4.51 M/uL (4.20-5.40) 09/26/24 16:03 Hgb 11.8 g/dl (12.0-16.0) L 09/26/24 16:03 Hct 36.4 % (37.0-47.0) L 09/26/24 16:03 MCV 80.7 fL (80.0-100.0) 09/26/24 16:03 MCH 26.2 pg (25.0-34.0) 09/26/24 16:03 MCHC 32.4 g/dL (32.0-36.0) 09/26/24 16:03 RDW Std Deviation 42.9 fL (36.4-46.3) 09/26/24 16:03 RDW Coeff of Andreina 14.6 % (11.5-14.5) H 09/26/24 16:03 Plt Count 269 K/uL (130-400) 09/26/24 16:03 MPV 10.2 fL (9.4-12.4) 09/26/24 16:03 Immature Gran % (Auto) 0.7 % 09/26/24 16:03 Neut % (Auto) 72.0 % 09/26/24 16:03 Lymph % (Auto) 18.5 % 09/26/24 16:03 [place] % (Auto) 8.4 % 09/26/24 16:03 Eos % (Auto) 0.1 % 09/26/24 16:03 Baso % (Auto) 0.3 % 09/26/24 16:03 Neut # (Auto) 5.29 K/uL (1.40-6.50) 09/26/24 16:03 Lymph # (Auto) 1.36 K/uL (1.20-3.40) 09/26/24 16:03 [place] # (Auto) 0.62 K/uL (0.11-0.59) H 09/26/24 16:03 Eos # (Auto) 0.01 K/uL (0.00-0.50) 09/26/24 16:03 Baso # (Auto) 0.02 K/uL (0.00-0.20) 09/26/24 16:03 Immature Gran # (Auto) 0.05 K/uL (0.01-0.20) 09/26/24 16:03 Sodium 126 mmol/L (136-145) L 09/26/24 17:34 Potassium 3.9 mmol/L (3.5-5.1) 09/26/24 17:34 Chloride 94 mmol/L (98-107) L 09/26/24 16:03 Carbon Dioxide 23 mmol/L (21-32) 09/26/24 16:03 Anion Gap TNP 09/26/24 16:03 BUN 7 mg/dl (6-23) 09/26/24 16:03 Creatinine 0.86 mg/dl (0.6-1.2) 09/26/24 16:03 Est Cr Clr Drug Dosing 55.1 ml/min 09/26/24 16:03 eGFR 70.41 09/26/24 16:03 BUN/Creatinine Ratio 8.1 (10-20) L 09/26/24 16:03 Glucose 121 mg/dl (70-99(Fasting)) H 09/26/24 16:03 Osmolality 263 mOsm/kg (280-300) L 09/26/24 17:34 Lactate 0.7 mmol/L (0.4-2.0) 09/26/24 17:34 Calcium 8.8 mg/dl (8.6-10.3) 09/26/24 16:03 Total Bilirubin 0.7 mg/dl (0.2-1.0) 09/26/24 16:03 AST 41 U/L (13-39) H 09/26/24 17:34 ALT 54 U/L (7-52) H 09/26/24 16:03 Alkaline Phosphatase 91 U/L (34-104) 09/26/24 17:34 Total Protein 7.3 gm/dl (6.0-8.3) 09/26/24 16:03 Albumin 3.9 gm/dl (3.4-5.0) 09/26/24 17:34 Globulin TNP 09/26/24 16:03 Albumin/Globulin Ratio TNP 09/26/24 16:03 Procalcitonin 0.15 ng/ml (0-0.5) 09/26/24 17:34 Urine Color Yellow 09/26/24 16:03 Urine Appearance Clear (Clear) 09/26/24 16:03 Urine pH >= 9.0 (4.5-7.5) H 09/26/24 16:03 Ur Specific [place] 1.014 (1.000-1.030) 09/26/24 16:03 Urine Protein Trace (Negative) H 09/26/24 16:03 Urine Glucose (UA) Negative (Negative) 09/26/24 16:03 Urine Ketones Negative (Negative) 09/26/24 16:03 Urine Blood Negative (Negative) 09/26/24 16:03 Urine Nitrite Negative (Negative) 09/26/24 16:03 Urine Bilirubin Negative (Negative) 09/26/24 16:03 Urine Urobilinogen Negative (Negative) 09/26/24 16:03 Ur Leukocyte Esterase Negative (Negative) 09/26/24 16:03 Urine WBC (Auto) 0-5 /hpf (0-5) 09/26/24 16:03 Urine RBC (Auto) 0-2 /hpf (0-2) 09/26/24 16:03 U Hyaline Cast (Auto) 0-2 /lpf (0-2) 09/26/24 16:03 U Epithel Cells (Auto) 0-2 /hpf (0-2) 09/26/24 16:03 Urine Bacteria (Auto) None Seen (None Seen) 09/26/24 16:03 Urine Osmolality 179 mOsm/kg (500-800) L 09/26/24 23:15 Ur Random Sodium 42 mmol/L 09/26/24 23:15 Urine Comment 09/26/24 16:03 Adenovirus (PCR) Not Detected (NotDetected) 09/26/24 17:57 Anaplasma Smear See Comment A 09/26/24 17:34 Babesia Smear See Comment 09/26/24 17:34 B. pertussis DNA (PCR) Not Detected (NotDetected) 09/26/24 17:57 B.parapertussis DNA PCR Not Detected (NotDetected) 09/26/24 17:57 C. pneumoniae DNA (PCR) Not Detected (NotDetected) 09/26/24 17:57 Coronavirus OC43 (PCR) Not Detected (NotDetected) 09/26/24 17:57 Coronavirus HKU1 (PCR) Not Detected (NotDetected) 09/26/24 17:57 Coronavirus 229E (PCR) Not Detected (NotDetected) 09/26/24 17:57 SARS-CoV-2 (PCR) Not Detected (NotDetected) 09/26/24 17:57 Coronavirus NL63 (PCR) Not Detected (NotDetected) 09/26/24 17:57 Human Metapneumovir PCR Not Detected (NotDetected) 09/26/24 17:57 Influenza Type A (PCR) Not Detected (NotDetected) 09/26/24 17:57 Influenza Type B (PCR) Not Detected (NotDetected) 09/26/24 17:57 M. pneumoniae (PCR) Not Detected (NotDetected) 09/26/24 17:57 Parainfluenza 1 (PCR) Not Detected (NotDetected) 09/26/24 17:57 Parainfluenza 2 (PCR) Not Detected (NotDetected) 09/26/24 17:57 Parainfluenza 3 (PCR) Not Detected (NotDetected) 09/26/24 17:57 Parainfluenza 4 (PCR) Not Detected (NotDetected) 09/26/24 17:57 RSV (PCR) Not Detected (NotDetected) 09/26/24 17:57 Entero/Rhino (PCR) Not Detected (NotDetected) 09/26/24 17:57 Impressions Abdomen/Pelvis CT 09/26/24 17:14 Clinical History: Diarrhea and fever Technique: Axial computed tomography images were obtained of the abdomen and pelvis after the administration of intravenous contrast. Comparison is made to the prior CT dated 09/14/2019. Findings: The liver is overall of normal size, attenuation, and contour with no sign of cirrhosis or significant fatty infiltration. No liver mass lesion is seen. The portal vein is patent. The gallbladder appears unremarkable. No bile duct dilatation is noted. The spleen is enlarged measuring 14.5 cm. No focal splenic lesion is evident. The pancreas appears normal with no sign of acute or chronic pancreatitis and no mass lesion noted. The pancreatic duct is of normal caliber. The adrenal glands appear unremarkable. No definite renal or proximal ureteral calculi are seen on this contrast-enhanced study. There is no hydronephrosis or perinephric stranding. No renal mass lesion is identified. There is a small 6 mm right renal cyst as well as a 3 mm right renal cyst. The aorta is of normal caliber. No abdominal adenopathy is seen. The stomach appears normal. There is no sign of small bowel obstruction. There is diverticulosis without definite diverticulitis. No free intraperitoneal fluid or air is identified. No distal ureteral or bladder calculi are seen. No bladder mass lesion is evident. The iliac arteries are of normal caliber. No pelvic adenopathy is noted. There is mild subsegmental atelectasis in the right lower lobe. Mild thoracolumbar degenerative disc disease is seen. No fracture is identified. No focal osseous lesion is seen Impression: 1. Small right renal cysts 2. Splenomegaly 3. Diverticulosis without definite diverticulitis Electronically signed by Riaz Beasley 09-26-2024 6:53 PM Code Status & VTE Plan VTE Prophylaxis Plan VTE Prophylaxis will be ordered: Yes
[2024-09-27 05:50] LABS: Hematocrit (blood only) 31.3 % (37.0-47.0); Hemoglobin 10.4 g/dl (12.0-16.0); Immature Granulocytes # (auto) 0.02 K/uL (0.01-0.20); Immature Granulocytes % (auto) 0.4 %; Mean Corpuscular Hemoglobin 27.0 pg (25.0-34.0); Mean Corpuscular Volume 81.3 fL (80.0-100.0); Platelet Count 266 K/uL (130-400); RDW Standard Deviation 43.9 fL (36.4-46.3); Red Blood Count 3.85 M/uL (4.20-5.40); White Blood Count 5.66 K/ul (4.8-10.8)
[2024-09-27 06:06] LABS: Alanine Aminotransferase 41.0 U/L (7-52); Alkaline Phosphatase 78.0 U/L (34-104); Anion Gap 7.0 (3-11); Bilirubin,Total 0.6 mg/dl (0.2-1.0); Blood Urea Nitrogen 6.0 mg/dl (6-23); Calcium 8.6 mg/dl (8.6-10.3); Carbon Dioxide 26.0 mmol/L (21-32); Chloride 98.0 mmol/L (98-107); Creatinine Clr Calc Pharmacy 64.1 ml/min; Glucose 104.0 mg/dl (70-99(Fasting)); Magnesium 2.0 mg/dl (1.7-2.4); Potassium 3.6 mmol/L (3.5-5.1); Sodium 131.0 mmol/L (136-145); Total Protein 6.4 gm/dl (6.0-8.3)
[2024-09-27] MEDS: LEVOTHYROXINE SODIUM 75 MCG TABLET PO SCH (06:08)
[2024-09-27] MEDS: ACETAMINOPHEN 1,000 MG/100 ML VIAL IV PRN (06:09)
[2024-09-27] MEDS: DOXYCYCLINE HYCLATE 100 MG in DEXTROSE 5% MINI-B 100 ML IV SCH (07:57)
[2024-09-27] MEDS: ARIPiprazole 5 MG TAB PO SCH (07:58)
[2024-09-27] MEDS: VENLAFAXINE HCL XR 75 MG CAPXR PO SCH (07:59)
[2024-09-27] MEDS: METOPROLOL SUCC 25MG EXT REL TAB PO SCH (07:59)
[2024-09-27] MEDS: ATORVASTATIN 20 MG TAB PO SCH (07:59)
[2024-09-27] MEDS: UMECLIDINIUM/VILANTEROL 62.5/25MCG 7 PUFFS/INHALER INH SCH (08:00)
--- NOTE | 2024-09-27 09:11 | Nephrology Consultation ---
Date of Consultation September 27, 2024 Assessment & Plan (1) Hyponatremia: Given prompt response with NS ( 126 to 131 Overnight) and clinical history of nausea, vomiting and diarrhea as well as very poor oral intake of food-- would have to assume this is a true hypovolemic Hyponatremia. the response is the most powerful clue rather than the urine tests. She may have been drinking lot of liquids given lowish urine Osm--She admitted doing that actually--lot of Gatorade but hardly any food. But it appears there is a true na deficit also will give another 1.5 liter of NS overnight. No further workup needed unless NA drops again. Will aim to get Na normal. Do labs once daily--BMP once daily. Phos and mag checked and normal. Normal renal function. (2) Anaplasmosis: As per primary team and is on Doxy currently. Plan time spent 63 mins. History of Present Illness Reason for Consultation: Hyponatremia Attending Physician: Angelic Parker MD History of Present Illness 74/F Came to ED last night with High fever and Was having headache, Body aches, Poor appetite , recent nausea vomiting and diarrhea, Frequent micturition. 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 Patient says she was bitten by flea about 10 days ago. No chest pain. No abdominal discomfort. No rash. Hemodynamics are okay. was in ED 09/19 also with nausea vomiting and diarrhea and fevers and at that time Anaplasma/Babesia smear was negative and Lyme screen was negative and UA was unremarkable ,sodium was 128. After hydration and antiemetics she felt better and she was discharged to follow-up with PCP. Outpatient she was found to have UTI with beta Streptococcus group B and started on Augmentin 3 days ago. na was 126 yesterday and is 131 today after some NS overnight. On doxycycline for Anaplasmosis. CT abdomen unremarkable. Currently Vital sigs are good. On RA. Making urine. No diuretics as outpt. Poor appetite for many days now. Still drinking liquids. No Diuretics pre admission. Her problem lists includes: hypothyroidism, prediabetes, mixed dyslipidemia, COPD, pulmonary nodule, vocal cord polyp, paroxysmal SVT, hypertension, CKD stage III, history of hepatitis C, GERD, urge incontinence, dry eye syndrome, iron deficiency anemia, depression, alcoholism in remission, anxiety disorder, medical marijuana use, mild cognitive impairment ROS--see HPI. 12 systems otherwise negative Physical Exam Physical Exam: General- Not in distress MM moist. Neck- supple, no JVD Lungs- clear to auscultation no wheezing or crackles Heart- regular rhythm; no murmur, no gallop. Abdomen- soft, nontender Extremities- no edema Neuro- alert, oriented . Normal speech and moves all limbs No obvious rash noted. Allergies Allergy/AdvReac Type Severity Reaction Status Date / Time formoterol [From Dulera] Allergy Intermediate Hives Verified 09/26/24 18:56 mometasone furoate Allergy Intermediate Hives Verified 09/26/24 18:56 [From Dulera] Home Medications Medication Instructions Recorded Confirmed Type albuterol sulfate 90 mcg/actuation 2 puffs inhalation Q4H PRN 06/14/19 09/26/24 Rx aerosol inhaler shortness of breath or wheezing #18 grams acetaminophen 500 mg tablet 500 mg PO Q6H PRN Pain 09/14/19 09/26/24 History (Tylenol Extra Strength) nystatin 100,000 unit/gram topical 1 applic topical BID PRN Rash 09/14/19 09/26/24 History cream nystatin 100,000 unit/gram topical 1 applic topical DAILY PRN Rash 09/14/19 09/26/24 History powder (Nystop) omeprazole 20 mg capsule,delayed 20 mg PO DAILY 09/14/19 09/26/24 History release amlodipine 5 mg tablet (Norvasc) 10 mg PO QAM 08/15/22 09/26/24 History atorvastatin 10 mg tablet 20 mg PO DAILY 08/15/22 09/26/24 History umeclidinium 62.5 mcg-vilanterol 1 ea inhalation DAILY 90 days #90 08/20/22 09/26/24 Rx 25 mcg/actuation powdr for puffs inhalation (Anoro Ellipta) aripiprazole 5 mg tablet 7.5 mg PO QAM 09/19/24 09/26/24 History levothyroxine 75 mcg tablet 75 mcg PO QAM 09/19/24 09/26/24 History metoprolol succinate 25 mg 25 mg PO QAM 09/19/24 09/26/24 History tablet,extended release 24 hr venlafaxine 75 mg capsule,extended 75 mg PO QAM 09/19/24 09/26/24 History release 24 hr amoxicillin 875 mg tablet 875 mg PO BID 09/26/24 09/26/24 History Patient History Medical History Alcoholism in remission Solitary pulmonary nodule Pulmonary emphysema Osteopenia Lesion of vocal cord Dry eye syndrome Cough Anxiety Abnormal finding on lung imaging Hepatitis C Treated and cured Wheezing Surgical History S/P bronchoscopy Hx of tubal ligation H/O dilation and curettage H/O colonoscopy Family History Family/Other Osteoporosis Hypertension Myocardial infarction Daughter Cancer Breast cancer Father Heart disease Other No family history of allergies No family history of bleeding disorder Denies family history of Hearing loss Stroke Asthma Social History Smoking Status: Former smoker Tobacco Type: Cigarettes Age Started Using Tobacco: 24; Age Quit Using Tobacco: 59; packs per day: 2; Do You Dip or Chew Tobacco: No; Hx Alcohol Use: Yes (alcoholic and quit 22 yrs ago) Hx Substance Use: No Preferred Language: Gibraltarian Communication Ability: Effective Beliefs That Will Affect Care: None marital status: Current Living Situation: Spouse current occupational status: retired Feels Safe at Home: Yes Seatbelt Use: always Assistive Devices: Glasses Results & Data Vital Signs (Past 12 Hours) Vital Signs Temp Pulse Pulse Resp BP BP BP 09/27/24 08:16 36.7 C 09/27/24 07:55 81 18 117/57 L 09/27/24 02:45 36.7 C 79 18 128/68 09/26/24 22:24 37 C 100 H 16 122/65 09/26/24 22:21 97 H 09/26/24 21:30 94 H 20 123/58 L Pulse Ox O2 Del Method 09/27/24 08:16 09/27/24 07:55 96 Room Air 09/27/24 02:45 95 Room Air 09/26/24 22:24 92 Room Air 09/26/24 22:21 09/26/24 21:30 94
[2024-09-27] MEDS: SODIUM CHLORIDE 0.9% 1,000 ML IV SCH (10:44)
[2024-09-27 11:25] LABS: Anion Gap 7.0 (3-11); Blood Urea Nitrogen 8.0 mg/dl (6-23); Calcium 8.8 mg/dl (8.6-10.3); Carbon Dioxide 24.0 mmol/L (21-32); Chloride 100.0 mmol/L (98-107); Creatinine Clr Calc Pharmacy 54.8 ml/min; Glucose 97.0 mg/dl (70-99(Fasting)); Potassium 3.8 mmol/L (3.5-5.1); Sodium 131.0 mmol/L (136-145)
[2024-09-27 14:08] LABS: Lyme Screen Rflx Confirmation Negative (Negative)
[2024-09-27 17:21] LABS: Anion Gap 6.0 (3-11); Blood Urea Nitrogen 9.0 mg/dl (6-23); Calcium 8.6 mg/dl (8.6-10.3); Carbon Dioxide 27.0 mmol/L (21-32); Chloride 100.0 mmol/L (98-107); Creatinine Clr Calc Pharmacy 52.3 ml/min; Glucose 114.0 mg/dl (70-99(Fasting)); Potassium 4.0 mmol/L (3.5-5.1); Sodium 133.0 mmol/L (136-145)
--- NOTE | 2024-09-27 18:29 | Hospitalist Progress Note ---
Date of Service September 27, 2024 Assessment & Plan (1) Anaplasmosis: Plan: Ms. Benjamin is a 74-year-old female with past medical history significant for hypothyroidism, prediabetes, mixed dyslipidemia, COPD, pulmonary nodule, vocal cord polyp, paroxysmal SVT, hypertension, CKD stage III, history of hepatitis C, GERD, urge incontinence, dry eye syndrome, iron deficiency anemia, depression, alcoholism in remission, anxiety disorder, medical marijuana use, mild cognitive impairment admitted for hyponatremia and anaplasmosis. #Anaplasmosis Babesia smear is negative Lyme is negative Continue doxycycline IV Tylenol as needed Mild elevation of AST ALT resolved #Recent UTI With beta strep group B Complete the course of Augmentin #Hyponatremia Sodium 126, up to 133 Received about liter of fluid in the ER Nephrology following suspecting true sodium deficit 1.5L NS overnight, plan for possible dispo tomorro w #Hyperlipidemia On statin #Prediabetes stable glucose on bmp #Paroxysmal SVT On metoprolol succinate #GERD On omeprazole #Hypothyroidism On Synthyroid #CKD stage III Presented with creatinine 0.8 stable #History of hepatitis C Treated with interferon and ribavirin 9 years ago as per epic #Hypertension On amlodipine, metoprolol succinate #Anxiety disorder Depression On venlafaxine and aripiprazole #COPD Continue home inhalers DVT prophylaxis Lovenox Disposition Telemetry, dispo likely tomorrow Full code. Admission and Anticipated Discharge Date Admission Date: September 26, 2024 Subjective NAEO reports mild headache but overall improved, noting increased appetite today Physical Exam Constitutional: WD/WN, vitals as above Respiratory: normal respiratory effort, lungs clear to auscultation Cardiovascular: RRR, no murmur, no edema Gastrointestinal (Abdomen): normal bowel sounds, soft, nontender, no hepatosplenomegaly Results & Data Results & Data Vital Signs (Past 12 Hours) Vital Signs Temp Pulse Pulse Resp BP BP Pulse Ox 09/27/24 16:46 73 09/27/24 15:07 36.5 C 72 18 125/74 97 09/27/24 11:46 81 09/27/24 10:47 36.6 C 84 18 124/71 96 09/27/24 08:16 36.7 C 09/27/24 07:55 81 18 117/57 L 96 O2 Del Method 09/27/24 16:46 07/01/25 15:07 Room Air 09/27/24 11:46 09/27/24 10:47 Room Air 09/27/24 08:16 09/27/24 07:55 Room Air Laboratory Results Short CBC 09/27/24 Range/Units 05:24 WBC 5.66 (4.8-10.8) K/ul Hgb 10.4 L (12.0-16.0) g/dl Hct 31.3 L (37.0-47.0) % Plt Count 266 (130-400) K/uL BMP 09/27/24 09/27/24 09/27/24 05:24 10:44 16:50 Sodium 131 L 131 L 133 L Potassium 3.6 3.8 4.0 Chloride 98 100 100 Carbon Dioxide 26 24 27 BUN 6 8 9 Creatinine 0.74 0.86 0.90 Glucose 104 H 97 114 H Calcium 8.6 8.8 8.6 Liver Function 09/27/24 Range/Units 05:24 Total Bilirubin 0.6 (0.2-1.0) mg/dl Direct Bilirubin 0.1 (0-0.2) mg/dl AST 32 (13-39) U/L ALT 41 (7-52) U/L Alkaline Phosphatase 78 (34-104) U/L Albumin 3.5 (3.4-5.0) gm/dl Medications Administered Home Medications Medication Instructions Recorded Confirmed Last Taken albuterol sulfate 90 mcg/actuation 2 puffs inhalation Q4H PRN 06/14/19 09/26/24 Unknown aerosol inhaler shortness of breath or wheezing #18 grams acetaminophen 500 mg tablet 500 mg PO Q6H PRN Pain 09/14/19 09/26/24 09/19/24 (Tylenol Extra Strength) nystatin 100,000 unit/gram topical 1 applic topical BID PRN Rash 09/14/19 09/26/24 Unknown cream nystatin 100,000 unit/gram topical 1 applic topical DAILY PRN Rash 09/14/19 09/26/24 Unknown powder (Nystop) omeprazole 20 mg capsule,delayed 20 mg PO DAILY 09/14/19 09/26/24 09/25/24 release amlodipine 5 mg tablet (Norvasc) 10 mg PO QAM 08/15/22 09/26/24 09/25/24 atorvastatin 10 mg tablet 20 mg PO DAILY 08/15/22 09/26/24 09/25/24 umeclidinium 62.5 mcg-vilanterol 1 ea inhalation DAILY 90 days #90 08/20/22 09/26/24 09/25/24 25 mcg/actuation powdr for puffs inhalation (Anoro Ellipta) aripiprazole 5 mg tablet 7.5 mg PO QAM 09/19/24 09/26/24 09/25/24 levothyroxine 75 mcg tablet 75 mcg PO QAM 09/19/24 09/26/24 09/25/24 metoprolol succinate 25 mg 25 mg PO QAM 09/19/24 09/26/24 09/25/24 tablet,extended release 24 hr venlafaxine 75 mg capsule,extended 75 mg PO QAM 09/19/24 09/26/24 09/25/24 release 24 hr amoxicillin 875 mg tablet 875 mg PO BID 09/26/24 09/26/24 09/25/24 Active Medications Generic Name Dose Route Start Last Admin Trade Name Yosefq PRN Reason Stop Dose Admin Amlodipine Besylate 10 mg 09/27/24 09:00 09/27/24 07:58 Amlodipine Besylate 5 Mg Tab PO 10/27/24 08:59 10 mg QAM LUPE Administration Amoxicillin 875 mg 09/26/24 22:24 09/27/24 07:58 Amoxicillin 875 Mg Tab PO 10/01/24 22:23 875 mg BID LUPE Administration Protocol Aripiprazole 7.5 mg 09/27/24 09:00 09/27/24 07:58 Aripiprazole 5 Mg Tab PO 10/27/24 08:59 7.5 mg QAM LUPE Administration Atorvastatin Calcium 20 mg 09/27/24 09:00 09/27/24 07:59 Atorvastatin 20 Mg Tab PO 10/27/24 08:59 20 mg DAILY LUPE Administration Enoxaparin Sodium 40 mg 09/26/24 22:24 09/26/24 23:16 Enoxaparin Inj 40 Mg/0.4 Ml Syr SQ 10/26/24 22:23 40 mg PM LUPE Administration Doxycycline Hyclate 100 mg/ 100 mls @ 50 mls/hr 09/27/24 08:00 09/27/24 10:39 Dextrose IV 10/11/24 07:59 Infused Q12H LUPE Infusion Acetaminophen 1,000 mg in 100 mls @ 400 mls/hr 09/26/24 22:24 09/27/24 07:33 Ofirmev IV 09/29/24 22:23 Infused Q8H PRN Infusion Pain or Fever Sodium Chloride 1,000 mls @ 75 mls/hr 09/27/24 09:30 09/27/24 11:26 Nss IV 09/28/24 05:29 0 mls/hr .[id number] LUPE Infusion Levothyroxine Sodium 75 mcg 09/27/24 06:30 09/27/24 06:08 Levothyroxine Sodium 75 Mcg Tablet PO 10/27/24 06:29 75 mcg DAILYBB LUPE Administration Metoprolol Succinate 25 mg 09/27/24 09:00 09/27/24 07:59 Metoprolol Succ 25mg Ext Rel Tab PO 10/27/24 08:59 25 mg QAM LUPE Administration Pantoprazole Sodium 40 mg 09/27/24 09:00 09/27/24 07:59 Pantoprazole 40 Mg Tab PO 10/27/24 08:59 40 mg DAILY LUPE Administration Umeclidinium/Vilanterol 1 puffs 09/27/24 09:00 09/27/24 08:00 Umeclidinium/Vilanterol 62.5/25mcg 7 Puffs/Inhaler INH 10/27/24 08:59 1 puffs DAILY LUPE Administration Venlafaxine HCl 75 mg 09/27/24 09:00 09/27/24 07:59 Venlafaxine Hcl Xr 75 Mg Capxr PO 10/27/24 08:59 75 mg QAM LUPE Administration
[2024-09-27] MEDS: MELATONIN 3 MG TAB PO PRN (20:40)
[2024-09-28 00:48] VITALS: RESP 18
[2024-09-28 06:40] LABS: Hematocrit (blood only) 33.3 % (37.0-47.0); Hemoglobin 10.8 g/dl (12.0-16.0); Mean Corpuscular Hemoglobin 26.5 pg (25.0-34.0); Mean Corpuscular Volume 81.6 fL (80.0-100.0); Platelet Count 327 K/uL (130-400); RDW Standard Deviation 43.9 fL (36.4-46.3); Red Blood Count 4.08 M/uL (4.20-5.40); White Blood Count 6.06 K/ul (4.8-10.8)
[2024-09-28 06:56] LABS: Anion Gap 7.0 (3-11); Blood Urea Nitrogen 8.0 mg/dl (6-23); Calcium 8.3 mg/dl (8.6-10.3); Carbon Dioxide 24.0 mmol/L (21-32); Chloride 101.0 mmol/L (98-107); Creatinine Clr Calc Pharmacy 56.3 ml/min; Glucose 94.0 mg/dl (70-99(Fasting)); Magnesium 2.1 mg/dl (1.7-2.4); Potassium 4.0 mmol/L (3.5-5.1); Sodium 132.0 mmol/L (136-145)
[2024-09-28 07:44] VITALS: TEMP 98.1; O2SAT 96
--- NOTE | 2024-09-28 09:34 | Nephrology Progress Note ---
Date of Service September 28, 2024 Assessment & Plan Admission and Anticipated Discharge Date Admission Date: September 26, 2024 Subjective Assessment & Plan (1) Hyponatremia: Given prompt response with NS ( 126 to 131 Overnight) and clinical history of nausea, vomiting and diarrhea as well as very poor oral intake of food-- would have to assume this is a true hypovolemic Hyponatremia. the response is the most powerful clue rather than the urine tests. She may have been drinking lot of liquids given lowish urine Osm--She admitted doing that actually--lot of Gatorade but hardly any food. But it appears there was a true na deficit also No further workup needed unless NA drops again. Will aim to get Na normal. Do labs once daily--BMP once daily. Phos and mag checked and normal. Normal renal function. na now stable at 132--133 range. may not go higher unless she eats much more protein. No salt tab or urea needed. At home also FFR 1500 ml per day and Eat more solid food/protein. No need for nephrology f/u unless NA low at PCP appt. (2) Anaplasmosis: As per primary team and is on Doxy currently. S--Feels better. Appetite still low. na better at 132--133 ROS--see HPI. 12 systems otherwise negative Physical Exam Physical Exam: General- Not in distress MM moist. Neck- supple, no JVD Lungs- clear to auscultation no wheezing or crackles Heart- regular rhythm; no murmur, no gallop. Abdomen- soft, nontender Extremities- no edema Neuro- alert, oriented . Normal speech and moves all limbs No obvious rash noted. Results & Data Vital Signs (Past 12 Hours) Vital Signs Temp Pulse Pulse Resp BP BP Pulse Ox 09/28/24 07:44 36.7 C 79 18 120/74 96 09/28/24 05:15 36.8 C 78 18 107/68 95 09/27/24 22:55 36.8 C 77 18 117/68 95 09/27/24 21:50 83 O2 Del Method 09/28/24 07:44 Room Air 09/28/24 05:15 Room Air 09/27/24 22:55 Room Air 09/27/24 21:50
[2024-09-28 11:10] VITALS: BP 107/68; PULSE 79
--- NOTE | 2024-09-28 12:12 | Discharge Summary ---
Date of Service September 28, 2024 Admission HPI Per Admitting Provider 74-year-old female with past medical history significant for hypothyroidism, prediabetes, mixed dyslipidemia, COPD, pulmonary nodule, vocal cord polyp, paroxysmal SVT, hypertension, CKD stage III, history of hepatitis C, GERD, urge incontinence, dry eye syndrome, iron deficiency anemia, depression, alcoholism in remission, anxiety disorder, medical marijuana use, mild cognitive impairment presents with fevers and headaches and found to have anaplasmosis. Patient was in the ER on with nausea vomiting and diarrhea and fevers and at that time Anaplasma/Babesia smear was negative and Lyme screen was negative and UA was unremarkable ,sodium was 128. After hydration and antiemetics she felt better and she was discharged to follow-up with PCP. Outpatient she was found to have UTI with beta Streptococcus group B and started on Augmentin 3 days ago. Today morning she developed high fever 104 degrees . Was having headache. Body aches. Appetite is poor. Frequent micturition. 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 Patient says she was bitten by flea about 10 days ago. Vision is okay. No runny nose or sore throat. No cough. Has some nausea. No chest pain. No abdominal discomfort. No rash. Hemodynamics are okay. Past medical history. As mentioned above Past surgical history. Colonoscopy. Dilatation curettage. Vocal cord polyp removed. Hysteroscopy with biopsy. Ligation oviducts. Radial keratotomy. Right trigger finger release. Social history. . Quit smoking 2013. Smoked 1.5 pack a day for 40 years. Quit alcohol 13 years ago. Uses marijuana. Family history. Daughter had breast cancer age 48. Sister had breast cancer at age of 67. Father had hypertension. Heart disorder. Mental disorder. Daughter has thyroid disorder. Admission Exam Per Admitting Provider General- Not in distress Head- atraumatic Eyes- PERRL. ENT- oropharynx clear Neck- supple, no JVD Lungs- clear to auscultation no wheezing or crackles Heart- regular rhythm; no murmur, no gallop. Abdomen- normal bowel sounds, soft, nontender, no distension Extremities- no pretibial edema, no erythema seen Neuro- alert, oriented PERRL, no facial palsy; no dysarthria; moves extremities Principal Diagnosis Anaplasmosis Hyponatremia Discharge Exam General- Not in distress Lungs- clear to auscultation no wheezing or crackles Heart- regular rhythm; no murmur, no gallop. Abdomen- normal bowel sounds, soft, nontender, no distension Extremities- no pretibial edema, no erythema seen Neuro- alert, oriented PERRL, no facial palsy; no dysarthria; moves extremities Discharge Data Allergies Allergy/AdvReac Type Severity Reaction Status Date / Time formoterol [From Dulera] Allergy Intermediate Hives Verified 09/26/24 18:56 mometasone furoate Allergy Intermediate Hives Verified 09/26/24 18:56 [From Dulera] Consultations 09/26/24 19:34 ED Decision to Admit Stat 09/27/24 08:00 Consult Nephrology Routine Ordered Studies 09/26/24 17:14 CT abd pelvis IV con only Stat Hospital Course (1) Anaplasmosis: Ms. Benjamin is a 74-year-old female with past medical history significant for hypothyroidism, prediabetes, mixed dyslipidemia, COPD, pulmonary nodule, vocal cord polyp, paroxysmal SVT, hypertension, CKD stage III, history of hepatitis C, GERD, urge incontinence, dry eye syndrome, iron deficiency anemia, depression, alcoholism in remission, anxiety disorder Presented to the hospital with fever, headache. Peripheral smear was consistent with anaplasmosis; patient was started on doxycycline and admitted to the hospital for further evaluation. Her serum sodium was 126; likely secondary to low oral intake. Patient reported significant improvement in her symptoms with doxycycline. Her serum sodium gradually improved with IV hydration. Patient's headache, fever subsided and patient was discharged to home with oral doxycycline course. Please note the above document was generated using voice recognition software. It may contain grammatical, syntax or spelling errors. Any formal questions or concerns about the content, text or information contained within the body of this dictation should be directly addressed to the provider for clarification Total Time Total Time Spent Total Time Spent (In Minutes): 35 Total Time Includes: Examination of the Patient, Discharge Planning, Medication Reconciliation, Communication With Other Providers and Other Discharge Plan Discharge Items Patient Disposition: Home - Self-Care Reason For Visit: ANAPLASMOSIS,HYPONATREMIA Discharge Diagnosis: Anaplasmosis, hyponatremia Condition on Discharge: Fair Activity: Resume your previous activity Non-emergency contact: Primary Care Provider Call non-emergency contact if: you have any medication questions and your symptoms worsen Follow-up/Referrals: Evelin Lin MD [Primary Care Provider] - 10/05/24 10:40 am (Date & Time 10/05/2024 10:40 AM Provider: Evelin Lin MD General Internal Medicine [facility]) Diet: Regular Addtl Attending Provider Instructions: You were admitted to the hospital due to infection due to a tick called anaplasmosis. You are prescribed doxycycline to be taken twice a day for 10 more days to complete the antibiotic course. You are also found to have low sodium level when you came to the hospital which has improved. Please follow-up with your primary care doctor and repeat blood test to check your sodium level. Pending Studies at Discharge: No Stand-Alone Forms: My [facility] in[place], Smoking Cessation Medications and DC Order Prescriptions: New doxycycline hyclate 100 mg capsule 100 mg PO BID 10 Days Qty: 20 0RF Continued albuterol sulfate 90 mcg/actuation HFA aerosol inhaler 2 puffs inhalation Q4H PRN (Reason: shortness of breath or wheezing) Qty: 18 5RF atorvastatin 10 mg tablet 20 mg PO DAILY amlodipine [Norvasc] 5 mg tablet 10 mg PO QAM Anoro Ellipta 62.5-25 mcg/actuation blister with device 1 ea inhalation DAILY 90 Days Qty: 90 3RF nystatin 100,000 unit/gram cream 1 applic TOPICAL BID PRN (Reason: Rash) omeprazole 20 mg capsule,delayed release(DR/EC) 20 mg PO DAILY nystatin [Nystop] 100,000 unit/gram powder 1 applic TOPICAL DAILY PRN (Reason: Rash) acetaminophen [Tylenol Extra Strength] 500 mg Tablet 500 mg PO Q6H PRN (Reason: Pain) venlafaxine 75 mg capsule,extended release 24hr 75 mg PO QAM levothyroxine 75 mcg tablet 75 mcg PO QAM metoprolol succinate 25 mg tablet extended release 24 hr 25 mg PO QAM aripiprazole 5 mg tablet 7.5 mg PO QAM amoxicillin 875 mg tablet 875 mg PO BID Rx Instructions: STARTED 09/24/24 FOR 10 DAYS Discharge Orders: Discharge Order (Routine); Ordered 09/28/24 Ordered By: Kosta Odom Admission Data Admit Date/Time: 09/26/24 20:40 Attending Provider: Kosta Odom Admit Provider: Ravinder Moran Primary Care Provider: Evelin Lin Other Providers: Ravinder Moran; Alvina Garvin Other Interventions: Discharge Summary Assessment (RN) Last Done: 09/28/24 11:07
== END 2024-09-28 12:40 | disposition home or self-care (01) | DRG 868 ==
LOC: ED 15:50 → SUATTDRO 20:40 → 2E 20:40